=== PATIENT | male | born 1955 | race Caucasian/White ===

== ENCOUNTER 2021-04-18 15:37 | Emergency (ER) | payer OTHER, SELFPAY ==
[2021-04-18 15:49] VITALS: BP 160/110; PULSE 90; PULSE 99; RESP 16; TEMP 36.8; O2SAT 98; O2SAT 99; BMI 26.4
--- NOTE | 2021-04-18 15:55 | ED.GENADULT ---
HPI - General Adult General Chief complaint: Dental/Oral Stated complaint: L FACE PAIN/SWELLING? INFECTION Time Seen by Provider: 04/18/21 15:55 Source: patient Limitations: no limitations History of Present Illness HPI narrative: Patient presents to the ER with left-sided facial swelling and dental pain. Patient states ongoing over the last 2-3 days after eating some food that had bones at 1 8 bit down causing pain. [place] and has a history of hypertension but has not taken his antihypertensive medications in some time. Pain and 8/10. Positive swelling noted to left side of the face. Related Data Previous Rx's Medication Instructions Recorded amoxicillin 500 mg capsule 500 mg PO TID 10 Days #30 cap 04/18/21 naproxen 500 mg tablet 500 mg PO BID PRN #30 tab 04/18/21 Allergies Allergy/AdvReac Type Severity Reaction Status Date / Time oxycodone [OXYCODONE] Allergy Mild NAUSEA & Unverified 11/03/19 16:11 VOMITING acetaminophen [Percocet] Allergy Unknown Verified 08/27/12 00:00 Review of Systems Constitutional: Constitutional: Denies chills, Denies fever(s) and Denies headache(s) ENT: Denies headache(s) and Reports mouth pain Gastrointestinal: Gastrointestinal: Denies nausea and Denies vomiting Neurologic: Denies headache(s) [facility] Past Medical History Attestation statement: The following information was validated with the patient. Social History Social History Advance Directives: No Advance Directives Information Provided: No Physical Exam ED Vital Signs: Vital Signs - 24 hr 04/18/21 15:49 Temperature 98.3 F Pulse Rate 90 Respiratory Rate 16 Blood Pressure 160/110 H Pulse Oximetry 99 BMI result Body Mass Index 26.4 vital signs have been reviewed as normal and appeared to be correct. Blood pressure normal. Heart rate normal. Respiration rate normal. Temperature normal. Oxygen saturation normal. Appearance: Alert. Oriented X3. No acute distress. Head: Normal external exam. Normocephalic. Atraumatic. Eyes: PERRLA. EOMI. Conjunctiva and sclera normal. Eyelids normal. ENT: Pharynx normal. Uvula midline. Moist mucous membranes. No trismus noted. No drooling noted. No muffled voice noted. Dentition in poor repair. Positive swelling left lower gum line no obvious drainable abscess palpated. Neck: Soft full range of motion, no JVD CVS: Heart regular rate and rhythm no murmurs and rubs Respiratory: Breath sounds are clear to auscultation bilaterally. No accessory muscle use noted. Back: Full range of motion noted. Skin: Skin warm and dry. No rashes ecchymosis noted Extremities: No lower extremity edema. Extremities exhibit normal range of motion. Extremities nontender. Neuro: Oriented X 3. No motor deficit. No sensory deficit. Reflexes normal. Course Course Course Narrative: Left-sided dental caries Left-sided facial pain Left-sided fractured tooth Case discussed with patient at length about the need to follow-up with the dentist. Will consult care team to help patient with transportation home. 30 mg Toradol IM 500 mg amoxicillin p.o. Discharge Plan Discharge Clinical Impression: Dental caries Instructions: Dental Abscess (ED), Toothache (ED) Additional Instructions: Medication as directed Close follow-up with dentist as needed Return if symptoms worsen Prescriptions: New naproxen 500 mg tablet 500 mg PO BID PRN (Reason: pain) Qty: 30 0RF Rx Instructions: Start 04/19/2021 amoxicillin 500 mg capsule 500 mg PO TID 10 Days Qty: 30 0RF
[2021-04-18] MEDS: Amoxicillin 500 MG CAPSULE PO (16:30)
[2021-04-18] MEDS: Ketorolac Tromethamine 30 MG/ML VIAL IM (16:30)
== END 2021-04-18 16:46 | disposition home or self-care (01) ==
PROVIDERS: Emergency Provider Emergency Medicine
DX: K02.9 Dental caries, unspecified (principal); K08.89 Other specified disorders of teeth and supporting structures
CPT/HCPCS: 96372; 99283; 99284; J1885

== ENCOUNTER 2022-04-28 12:15 | Emergency (ER) | payer OTHER, SELFPAY ==
--- NOTE | ~2022-04-28 | XR_ITS ---
EXAMINATION: XR LUMBOSACRAL SPINE CLINICAL INFORMATION: Back pain. COMPARISON: None TECHNIQUE: Three views of the lumbosacral spine. FINDINGS: No acute compression deformity or traumatic subluxation. Moderate to severe intervertebral disc height loss at L3-L4, L4-L5 and L5-S1 with associated vacuum disc phenomena. Moderate hypertrophic facet changes at L4-L5 and L5-S1 leading to some degree of neural foraminal encroachment predominantly at L5-S1. SI joints are symmetric. Scattered atherosclerotic disease of the abdominal aorta. XR/XR lumbar spine 2-3V IMPRESSION: 1. No acute compression deformity or malalignment. 2. Moderate to severe lumbar spondylosis from L3 through S1. For evaluation of nerve root impingement, disc pathologies and degree of central canal narrowing, consider correlation with an MR of the lumbar spine if clinically deemed appropriate.
--- NOTE | ~2022-04-28 | XR_ITS ---
EXAMINATION: XR HIP, RIGHT CLINICAL INFORMATION: Right back/hip pain. COMPARISON: None TECHNIQUE: Two views of the right hip. FINDINGS: No acute fractures or malalignment. Mild to moderate joint space narrowing with subcortical sclerosis in both hips. SI joints are symmetric. Pubic symphysis is maintained. There are vascular calcifications. Otherwise, no significant soft tissue abnormality. XR/XR hip RT w PEL1V IMPRESSION: No acute fractures or malalignment. 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
--- NOTE | 2022-04-28 12:47 | ED.LOWEXIN ---
HPI - Extremity Injury (Lower) General Chief Complaint: General Medical <LANE Knowles - Last Filed: 04/28/22 12:51> Stated Complaint: r hip pain <LANE Knowles - Last Filed: 04/28/22 12:51> Time Seen by Provider: 04/28/22 14:02 <L[address] Knowles - Last Filed: 04/28/22 12:51> Source: patient <LANE Daniel - Last Filed: 04/28/22 16:46> Mode of arrival: ambulatory <LANE Daniel - Last Filed: 04/28/22 16:46> Limitations: no limitations <LANE Daniel Last Filed: 04/28/22 16:46> History of Present Illness HPI Narrative: Patient is a 67 year old assigned male at with a history of alcohol abuse, now 14 years sober, presenting to the emergency department today with right hip pain. Patient states that he was doing some heavy lifting and twisting 5 days ago and has been having right sided hip pain ever since. Patient denies any dizziness, lightheadedness, abdominal pain, nausea, vomiting, fever, chills, blurry vision, double vision, loss of vision, chest pain, difficulty breathing, shortness of breath, back pain, night sweats, pain with urination, increased urinary frequency, increased urinary urgency, blood in his urine or stool, syncope or a near syncopal episode, bowel incontinence, bladder incontinence, bowel retention, bladder retention, or any other complaints at this time. <LANE Daniel - Last Filed: 04/28/22 16:46> Onset (ago): day(s) (5) <LANE Daniel - Last Filed: 04/28/22 16:46> Severity: mild <LANE Daniel Last Filed: 04/28/22 16:46> Severity scale (1-10): 3 <L[address] Daniel Last Filed: 04/28/22 16:46> Relieving factors: nothing <LANE Daniel Last Filed: 04/28/22 16:46> Exacerbating factors: nothing <LANE Daniel Last Filed: 04/28/22 16:46> Other symptoms: none <LANE Daniel Last Filed: 04/28/22 16:46> Related Data Home Medications: Previous Rx's Medication Instructions Recorded amoxicillin 500 mg capsule 500 mg PO TID 10 days #30 caps 04/18/21 naproxen 500 mg tablet 500 mg PO BID PRN pain #30 tabs 04/18/21 lidocaine 4 % topical patch 1 patch topical DAILY PRN pain #10 04/28/22 ea naproxen 500 mg tablet 500 mg PO BID 7 days #14 tabs 04/28/22 <L[address] Knowles Last Filed: 04/28/22 12:51> Allergies/Adverse Reactions: Allergies Allergy/AdvReac Type Severity Reaction Status Date / Time oxycodone [OXYCODONE] Allergy Mild NAUSEA & Verified 04/28/22 12:48 VOMITING acetaminophen [Percocet] Allergy Unknown Nausea and Verified 04/28/22 12:48 Vomiting <LANE Knowles Last Filed: 04/28/22 12:51> Review of Systems Constitutional: Constitutional: Reports no additional constitutional complaints, Denies chills, Denies fever(s) and Denies night sweats <LANE Daniel Last Filed: 04/28/22 16:46> Eyes: Eyes: Reports no additional eye complaints, Denies blurry vision, Denies change in vision, Denies diplopia, Denies eye discharge, Denies loss of vision and Denies eye pain <LANE Daniel Last Filed: 04/28/22 16:46> ENT: Denies dizziness <LANE Daniel Last Filed: 04/28/22 16:46> Cardiovascular: Cardiovascular: Reports no additional cardiovascular complaints, Denies chest pain, Denies lightheadedness, Denies Loss of Consciousness and Denies dyspnea <LANE Daniel Last Filed: 04/28/22 16:46> Respiratory: Respiratory: Reports no additional respiratory complaints and Denies dyspnea <LANE Daniel Last Filed: 04/28/22 16:46> Gastrointestinal: Gastrointestinal: Reports no additional gastrointestinal complaints, Denies abdominal pain, Denies melena, Denies hematochezia, Denies change in bowel habits and Denies change in stool character <LANE Daniel Last Filed: 04/28/22 16:46> Genitourinary: Genitourinary: Reports no additional male genitourinary complaints, Denies hematuria, Denies oliguria, Denies difficulty urinating, Denies dysuria, Denies urinary frequency, Denies urinary hesitancy, Denies urinary incontinence and Denies urinary urgency <LANE Daniel - Last Filed: 04/28/22 16:46> Musculoskeletal: Musculoskeletal: Reports no additional musculoskeletal complaints, Denies numbness and Denies tingling <LANE Daniel - Last Filed: 04/28/22 16:46> Comments: right hip pain <LANE Daniel - Last Filed: 04/28/22 16:46> Neurologic: Denies dizziness, Denies loss of vision, Denies numbness and Denies tingling <LANE Daniel - Last Filed: 04/28/22 16:46> Psychiatric: Psychiatric: Reports no additional psychiatric complaints <LANE Daniel - Last Filed: 04/28/22 16:46> Endocrine: Endocrine: Reports no additional endocrine complaints <LANE Daniel - Last Filed: 04/28/22 16:46> Hematologic/Lymphatic: Hematologic/Lymphatic: Reports no additional hematologic/lymphatic complaints <LANE Daniel - Last Filed: 04/28/22 16:46> Allergic/Immunologic: Allergic/Immunologic: Reports no additional allergic/immunologic complaints <LANE Daniel - Last Filed: 04/28/22 16:46> PMFSH Past Medical History Attestation statement: The following information was validated with the patient. <LANE Daniel - Last Filed: 04/28/22 16:46> Source: old records reviewed and nursing notes reviewed <LANE Daniel - Last Filed: 04/28/22 16:46> Social History Social History: Social History Advance Directives: No Advance Directives Information Provided: No <LANE Knowles - Last Filed: 04/28/22 12:51> Physical Exam Vital Signs: Vital Signs: Last Vital Signs Temp 98.5 F 04/28/22 12:49 Pulse 65 04/28/22 12:49 Resp 18 04/28/22 12:49 BP 165/92 H 04/28/22 12:49 Pulse Ox 97 04/28/22 12:49 O2 Del Method 04/28/22 12:49 BMI result Body Mass Index 27.1 <L[address] Knowles - Last Filed: 04/28/22 12:51> Vital Signs: Last Vital Signs Temp 98.5 F 04/28/22 12:49 Pulse 65 04/28/22 12:49 Resp 18 04/28/22 12:49 BP 165/92 H 04/28/22 12:49 Pulse Ox 97 04/28/22 12:49 O2 Del Method 04/28/22 12:49 BMI result Body Mass Index 27.1 <L[address] Daniel - Last Filed: 04/28/22 16:46> Const: General: cooperative, no acute distress, alert and awake <LANE Daniel - Last Filed: 04/28/22 16:46> Nutritional Appearance: well nourished <LANE Daniel - Last Filed: 04/28/22 16:46> Orientation/consciousness: patient oriented x3 <LANE Daniel - Last Filed: 04/28/22 16:46> Limitations: no limitations <LANE Daniel - Last Filed: 04/28/22 16:46> HEENT: Head: Yes normal to inspection and Yes atraumatic <LANE Daniel - Last Filed: 04/28/22 16:46> Ears: hearing grossly normal bilaterally and external ears normal <LANE Daniel - Last Filed: 04/28/22 16:46> General nose exam: Normal external nose present, no nasal discharge noted and no epistaxis <LANE Daniel - Last Filed: 04/28/22 16:46> Face and sinus: Yes normal facial exam, No abrasion and No laceration <LANE Daniel - Last Filed: 04/28/22 16:46> Mouth: Normal oral and palatal mucosa present, no drooling and no muffled voice <LANE Daniel - Last Filed: 04/28/22 16:46> Eyes: General: appearance normal, both eyes and all related structures <LANE Daniel - Last Filed: 04/28/22 16:46> Periorbital: periorbital findings normal <Latha Christian [place] - Last Filed: 04/28/22 16:46> Eyelids: Yes eyelids normal <Latha Christian [place] - Last Filed: 04/28/22 16:46> Conjunctivae: conjunctivae normal <Latha Christian [place] - Last Filed: 04/28/22 16:46> Pupils: Equal, round and reactive pupils present <Latha Christian [place] - Last Filed: 04/28/22 16:46> EOM: EOMs intact bilaterally <Latha Christian [place] - Last Filed: 04/28/22 16:46> Neck: Neck: Yes normal visual inspection, Yes full ROM and Yes no lymphadenopathy <Latha Christian [place] - Last Filed: 04/28/22 16:46> Chest: Chest palpation & inspection: normal inspection of the chest <Latha Christian [place] - Last Filed: 04/28/22 16:46> Resp: Effort & Inspection: normal respiratory effort and able to speak in complete sentences <Latha Christian [place] - Last Filed: 04/28/22 16:46> Auscultation: clear to auscultation bilaterally <Latha Christian [place] - Last Filed: 04/28/22 16:46> Cardio: Rate: regular rate <Latha Christian [place] - Last Filed: 04/28/22 16:46> Rhythm: regular rhythm <Latha Christian [place] - Last Filed: 04/28/22 16:46> GI: Inspection: Yes normal to inspection <Latha Christian [place] - Last Filed: 04/28/22 16:46> Palpation (GI): Soft to palpation, not firm, nontender, no guarding and not rigid <Latha Christian [place] - Last Filed: 04/28/22 16:46> : General: Yes no CVA tenderness <Latha Christian [place] - Last Filed: 04/28/22 16:46> Back/Spine/Pelvis: Back: no CVA tenderness <Latha Christian [place] - Last Filed: 04/28/22 16:46> Cervical Spine: normal cervical lordosis and cervical ROM normal <Latha Christian MI - Last Filed: 04/28/22 16:46> Thoracic/Lumbar Spine: thoracic and lumbar spine normal to inspection and thoraco-lumbar ROM normal <Latha LANE Christian - Last Filed: 04/28/22 16:46> Pelvis: no pain with anterior-posterior compression <Lathaabigail AnneLANE emerson - Last Filed: 04/28/22 16:46> Neuro: General: patient oriented x3 and moves all extremities <LANE Daniel - Last Filed: 04/28/22 16:46> Cranial nerves: Yes Equal, round and reactive pupils present <Latha Christian PA - Last Filed: 04/28/22 16:46> Cognition (Neuro): normal cognition <LANE Daniel - Last Filed: 04/28/22 16:46> Motor exam (neuro): 5/5 motor strength present throughout <Latha Christian PA - Last Filed: 04/28/22 16:46> Sensory Exam: Normal double simultaneous stimulation for sensation <LANE Daniel - Last Filed: 04/28/22 16:46> Coordination: [id number] test normal <Latha Christian PA - Last Filed: 04/28/22 16:46> Extrem: General: Yes normal to inspection, Yes full ROM and Yes capillary refill normal <LANE Daniel - Last Filed: 04/28/22 16:46> Psych: Appearance: grossly normal <LANE Daniel - Last Filed: 04/28/22 16:46> Mental Status: mental status grossly normal <LANE Daniel - Last Filed: 04/28/22 16:46> Affect: normal affect <LANE Daniel - Last Filed: 04/28/22 16:46> Attitude: cooperative <LANE Daniel - Last Filed: 04/28/22 16:46> Thought process: Normal thought process present <LANE Daniel - Last Filed: 04/28/22 16:46> Thought content: Normal thought content present <LANE Daniel - Last Filed: 04/28/22 16:46> Insight: Good insight present (Psych) <LANE Daniel - Last Filed: 04/28/22 16:46> Course Course Course Narrative: RME-12:47PM - 67yoM with a PMHx of HTN who is presenting to the ED with c/o of right hip pain that started 2 days ago. Is a . 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 Work with walking. Reports the pain is going down the leg. Denies fevers, CP, SOB, Leg, swelling, calf tenderness, urinary bowel incontinence or retention, saddle anesthesia, recent falls or trauma, any urinary symptoms, abdominal pain or any other symptoms complaints or concerns at this time. Plan: X-ray of right hip and lumbar spine ordered at this time. Patient will be seen in [facility]. <LANE Knowles - Last Filed: 04/28/22 12:51> Medications Administered Discontinued Medications Generic Name Dose Route Start Last Admin Trade Name Freq PRN Reason Stop Dose Admin Ketorolac Tromethamine 15 mg 04/28/22 14:21 04/28/22 14:35 Ketorolac Tromethamine 15 Mg/Ml Vial IM 04/28/22 14:22 15 mg ONCE ONE Administration <LANE Knowles - Last Filed: 04/28/22 12:51> Medications Administered Discontinued Medications Generic Name Dose Route Start Last Admin Trade Name Freq PRN Reason Stop Dose Admin Ketorolac Tromethamine 15 mg 04/28/22 14:21 04/28/22 14:35 Ketorolac Tromethamine 15 Mg/Ml Vial IM 04/28/22 14:22 15 mg ONCE ONE Administration <LANE Daniel - Last Filed: 04/28/22 16:46> Medical Decision Making Medical Decision Making [facility] Narrative: Patient is a 67 year old assigned male at with a history of alcohol abuse, now 14 years sober, presenting to the emergency department today with right hip pain. Patient's physical exam was unremarkable. Patient's right hip x-ray showed no acute process. Patient's lumbar spine x-ray showed moderate to severe lumbar spondylosis. I explained my physical exam findings as well as all test results to the patient. I answered all questions asked by the patient. Patient received IM Toradol which he stated helped his pain significantly. I stressed the importance of the patient taking his medication as prescribed. I stressed the importance of the patient following up with his primary care provider. I stressed the importance of the patient returning to the emergency department immediately if his symptoms were to worsen or if he were to develop any dizziness, shortness of breath, difficulty breathing, chest pain, blurry vision, loss of vision, nausea, vomiting, abdominal pain, fever, chills, back pain, or any other complaints. Patient verbalized agreement and understanding with this treatment plan and discharge. <LANE Daniel - Last Filed: 04/28/22 16:46> Differential Diagnosis Differential Diagnoses: The differential diagnosis associated with the presentation includes <LANE Daniel - Last Filed: 04/28/22 16:46> hip pain, muscle strain <LANE Daniel - Last Filed: 04/28/22 16:46> Independent Interpretation I performed an independent interpretation of an: Plain X-Ray <LANE Daniel - Last Filed: 04/28/22 16:46> Interpretation: My interpretation is in agreement with the radiologist's impression of these imaging studies. EXAMINATION: XR LUMBOSACRAL SPINE CLINICAL INFORMATION: Back pain. COMPARISON: None TECHNIQUE: Three views of the lumbosacral spine. FINDINGS: No acute compression deformity or traumatic subluxation. Moderate to severe intervertebral disc height loss at L3-L4, L4-L5 and L5-S1 with associated vacuum disc phenomena. Moderate hypertrophic facet changes at L4-L5 and L5-S1 leading to some degree of neural foraminal encroachment predominantly at L5-S1. SI joints are symmetric. Scattered atherosclerotic disease of the abdominal aorta. XR/XR lumbar spine 2-3V IMPRESSION: 1.? No acute compression deformity or malalignment. 2.? Moderate to severe lumbar spondylosis from L3 through S1. For evaluation of nerve root impingement, disc pathologies and degree of central canal narrowing, consider correlation with an MR of the lumbar spine if clinically deemed appropriate. Dictated By: Leila Harper Signed By: Electronically signed by Leila Harper 04/28/22 1342 EXAMINATION: XR HIP, RIGHT CLINICAL INFORMATION: Right back/hip pain. COMPARISON: None TECHNIQUE: Two views of the right hip. FINDINGS: No acute fractures or malalignment. Mild to moderate joint space narrowing with subcortical sclerosis in both hips. SI joints are symmetric. Pubic symphysis is maintained. There are vascular calcifications. Otherwise, no significant soft tissue abnormality.? XR/XR hip RT w PEL1V IMPRESSION: No acute fractures or malalignment. 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 Dictated By: Leila Harper Signed By: Electronically signed by Leila Harper 04/28/22 [address] <[address] Daniel - Last Filed: 04/28/22 16:46> Discharge Plan Discharge Clinical Impression: Acute hip pain <LANE Knowles - Last Filed: 04/28/22 12:51> Patient Disposition: Home, Self-Care <LANE Knowles - Last Filed: 04/28/22 12:51> Instructions: Hip Pain (ED) <LANE Knowles - Last Filed: 04/28/22 12:51> Additional Instructions: Follow up with your primary care provider. Return to the emergency department immediately if your symptoms worsen or if you develop any dizziness, shortness of breath, difficulty breathing, chest pain, blurry vision, loss of vision, nausea, vomiting, abdominal pain, fever, chills, back pain, or any other complaints. <LANE Knowles - Last Filed: 04/28/22 12:51> Prescriptions: New naproxen 500 mg tablet 500 mg PO BID 7 Days Qty: 14 0RF lidocaine 4 % adhesive patch,medicated 1 patch topical DAILY PRN (Reason: pain) Qty: 10 0RF No Action naproxen 500 mg tablet 500 mg PO BID PRN (Reason: pain) Qty: 30 0RF Rx Instructions: Start 04/19/2021 amoxicillin 500 mg capsule 500 mg PO TID 10 Days Qty: 30 0RF <L[address] Knowles - Last Filed: 04/28/22 12:51> Referrals: [facility] [Provider Group] (Call to establish and follow up with an orthopedic provider. ) Osmar Healy [Primary Care Provider] - <LANE Knowles - Last Filed: 04/28/22 12:51> Stand Alone Forms: Work/School Release <LANE Knowles - Last Filed: 04/28/22 12:51> Interventions: ED Discharge Assessment Last Done: 04/28/22 14:37 <L[address] Knowles - Last Filed: 04/28/22 12:51> Discharge Date/Time: 04/28/22 14:38 <LANE Knowles - Last Filed: 04/28/22 12:51> Print Language: Urdu <LANE Knowles - Last Filed: 04/28/22 12:51>
[2022-04-28 12:49] VITALS: BP 165/92; PULSE 65; RESP 18; TEMP 36.9; O2SAT 97; BMI 27.1
[2022-04-28] MEDS: Ketorolac Tromethamine 15 MG/ML VIAL IM (14:35)
== END 2022-04-28 14:38 | disposition home or self-care (01) ==
LOC: HO.ED 14:31
PROVIDERS: Emergency Provider Student in an Organized Health Care Education/Training Program; PCP Internal Medicine
DX: M25.551 Pain in right hip (principal); M54.50 Low back pain, unspecified; Z79.899 Other long term (current) drug therapy
CPT/HCPCS: 72100; 73502; 96372; 99283; 99284; J1885

== ENCOUNTER 2024-03-14 09:16 | Outpatient (AMB) | payer OTHER, SELFPAY ==
--- NOTE | 2024-03-14 09:23 | MHC.OFFVIS ---
Intake Visit Reasons: elevated PSA Intake Note: New patient is Present for Elevated PSA Any Urology Med: None Antibiotic Allergy: None Blood Thinner: Aspirin PVR: 0ml Doctor Of [facility] Required: No Accompanied by: Self / Same As Patient Allergies cyclobenzaprine Allergy (Mild, Verified 03/14/24 09:24) Unknown naproxen [From Naprosyn] Allergy (Mild, Verified 03/14/24 09:24) Unknown oxycodone [OXYCODONE] Allergy (Mild, Verified 03/14/24 09:24) NAUSEA & VOMITING acetaminophen [Percocet] Allergy (Unknown, Verified 03/14/24 09:24) Nausea and Vomiting lisinipril Allergy (Mild, Uncoded 03/14/24 09:24) Unknown Medication List - Last Reconciled 03/14/24 by Keisha Muhammad MD amlodipine 10 mg PO DAILY aspirin (Adult Aspirin Regimen) 81 mg PO DAILY HPI Comments Details: Allan is a 69-year-old male who [facility]. He denies obstructive voiding symptoms. AUA BPH score is 2/35. Urinalysis today is negative. He had PSA done 4.99. Denies family history of prostate cancer. Prostate examination smooth no suspicious nodules. I have discussed that elevated PSA may indicate changes in the prostate including benign enlargement, cancer and an inflammatory condition. I have discussed repeat PSA and ultrasound of urinary tract. [facility] Medical History (Updated 03/14/24 @ 10:22 by Keisha Muhammad MD) Other testicular hypofunction Solitary pulmonary nodule Pain in right hip Monoclonal gammopathy Gastric ulcer, unspecified as acute or chronic, without hemorrhage or perforation Essential (primary) hypertension Contact with and (suspected) exposure to other hazardous substances Anemia, unspecified Cocaine dependence, uncomplicated Cannabis dependence, in remission Alcohol dependence, in remission Elevated PSA Review of Systems Const All systems reviewed & are unremarkable except as noted in HPI and below Reports no additional complaints Eyes Reports no additional complaints ENT Reports no additional complaints Card Reports no additional complaints Resp Reports no additional complaints GI Reports no additional complaints Reports as per HPI Musc Reports no additional complaints Skin/Breast Reports system reviewed and no additional complaints, except as documented Neuro Reports no additional complaints Psych Reports no additional complaints Endo Reports no additional complaints Roberto/Lymph Reports no additional complaints Aller/Immun Reports no additional complaints Physical Exam Const General: healthy appearing, no acute distress and well developed Orientation/consciousness: patient oriented x3 HEENT Head: Yes normocephalic and Yes atraumatic Eyes Conjunctivae: conjunctivae normal Neck Neck: Yes normal visual inspection Chest Chest palpation & inspection: normal inspection of the chest Resp Effort & Inspection: normal respiratory effort Cardio Jugular venous distension: no JVD GI Inspection: Yes normal to inspection Other: Prostate Exam: Smooth no suspicious nodules Skin General skin exam: no rashes or lesions noted Neuro General: patient oriented x3 Extrem General: No pedal edema Psych Appearance: grossly normal Affect: normal affect Office Procedures Post Void Residual Post Residual Void Post Void Residual (PVR): 0 [id number] Void Residual by ultrasound Results AMB Urinalysis, Automated UA Leukoctes 0 Teja/uL Last Edit by MARZENA Mas on 03/14/24 09:35 UA Nitrite Negative Last Edit by Suzanne Hinton [facility] on 03/14/24 09:35 UA Urobilinogen 0.2 mg/dL Last Edit by MARZENA Mas on 03/14/24 09:35 UA Protein 15 mg/dL Last Edit by Suzanne Hinton [facility] on 03/14/24 09:35 UA pH 6.0 Last Edit by MARZENA Mas on 03/14/24 09:35 UA Blood 0 Prasanna/uL Last Edit by Suzanne Hinton [facility] on 03/14/24 09:35 UA Specific [place] 1.015 Last Edit by MARZENA Mas on 03/14/24 09:35 UA Ketone Negative Last Edit by Suzanne Hinton Jelani on 03/14/24 09:35 UA Bilirubin 0 mg/dL Last Edit by Suzanne Hinton [facility] on 03/14/24 09:35 UA Glucose 0 mg/dL Last Edit by Suzanne Hinton [facility] on 03/14/24 09:35 Quality Reporting (2019) Benign Prostatic Hyperplasia ([facility] 771) AUA symptom score: 2 Quality of life due to urinary symptoms: If you were to spend the rest of your life with your urinary condition the way it is now, how would you feel about that?: Delighted Results Reviewed Results Reviewed: Laboratory Last Values Urine pH (Auto) 6.0 03/14/24 09:32 Specific [place] (Auto) 1.015 03/14/24 09:32 Urine Protein (Auto) 15 mg/dL 03/14/24 09:32 Glucose (UA)(Auto) 0 mg/dL 03/14/24 09:32 Urine Ketones (Auto) Negative 03/14/24 09:32 Urine Blood (Auto) 0 Prasanna/uL 03/14/24 09:32 Urine Nitrite (Auto) Negative 03/14/24 09:32 Urine Bilirubin (Auto) 0 mg/dL 03/14/24 09:32 Urine Urobilinogen (Auto) 0.2 mg/dL 03/14/24 09:32 Leukocyte Esterase (Auto) 0 Teja/uL 03/14/24 09:32 Assessment & Plan Assessment & Plan (1) BPH (benign prostatic hyperplasia): Code(s): N40.0 - Benign prostatic hyperplasia without lower urinary tract symptoms Category: Medical (2) Elevated PSA: Code(s): R97.20 - Elevated prostate specific antigen [PSA] Category: Medical Plan Ultrasound urinary tract. Repeat PSA Orders: Orders US retroperitoneal comp Today N40.0 - Benign prostatic hyperplasia without lower urinary tract symptoms, R97.20 - Elevated prostate specific antigen [PSA] PSA,Total (Free>4and<10) Today N40.0 - Benign prostatic hyperplasia without lower urinary tract symptoms, R97.20 - Elevated prostate specific antigen [PSA] AMB Urinalysis Automated Today Z13.9 - Encounter for screening, unspecified AMB Post Void Residual by ultrasound Today Z13.9 - Encounter for screening, unspecified Patient Instructions: The patient had an opportunity to ask questions regarding treatment plan. The patient expressed understanding and agreement with the above treatment plan. The patient is aware they should contact our office by phone for worsening of their current condition or the appearance of new symptoms. Compliance is encouraged with any medications and followup testing that is ordered. It is a privilege to be allowed the opportunity to participate in the urologic care of your patient. If you have any questions or concerns regarding treatment for the above conditions please do not hesitate to contact me. The office telephone contact is [phone]. This note is constructed in part using voice recognition software. While every effort has been made to ensure accuracy retort loader errors may have been included. Yours sincerely, Keisha Muhammad MD Coding Level of Care Code New Pt Level 4 (32839) Diagnoses BPH (benign prostatic hyperplasia) N40.0 Elevated PSA R97.20 CPT Codes Post Residual Void - PVR CPT Code: 94687-Ikma Void Residual by ultrasound ([id number]) AUA Symptom Score AUA Incomplete emptying - It does not feel like I empty my bladder all the way.: 0 - Not at all Frequency - I have to go again less than two hours after I finish urinating.: 1 - Less than 1 time in 5 Intermittency - I stop and start again several times when I urinate.: 0 - Not at all Urgency - It is hard to wait when I have to urinate.: 0 - Not at all Weak stream - I have a weak urinary stream.: 0 - Not at all Straining - I have to push or strain to begin urination.: 0 - Not at all Nocturia - I get up to urinate after I go to bed until the time I get up in the morning.: 1 time AUA Symptom Score: 2 Quality of life due to urinary symptoms: If you were to spend the rest of your life with your urinary condition the way it is now, how would you feel about that?: Delighted Source: Josesito TROTTER, Sonja SALDAÑA Jr, O'Ascencion MP, et al, and the Measurement Committee of the [employer]. The [employer] symptom index for benign prostatic hyperplasia. J Urol. 1992; 148: 1871-2849. Copyright 1992 [employer]
--- OUTSIDE RECORDS SUMMARY | 2024-03-14 13:38 | XMS_ITS | Data Portability ---
Author Organization [facility], [facility] Address [address] [place] [address] Care Team Providers Care Basketball Assembler Name Role Phone SHANE BRADSHAW Referring Provider Assessment Encounter Date Assessment Date Assessment LastModified by Organization Details LastModified Time 12/16/2023 12/16/2023 Assessment: Improved mobility/stiffne ss since beginning stretches at home. STM to proximal ITB/TFL to distal ITB. improvement in symptoms by end of session. ? Plan: Continued PT is recommended at 2x/week to decrease pain, improve hip strength, and increase participation in functional activities. [email or web address] Not available 12/16/2023 09:25:28 12/21/2023 12/21/2023 Assessment: Swelling not as prominent today. better tolerance to all stretching. Quick to fatigue on R side. ? Plan: Continued PT is recommended at 2x/week to decrease pain, improve hip strength, and increase participation in functional activities. [email or web address] Not available 12/21/2023 08:57:11 12/23/2023 12/23/2023 Assessment: Swelling not as prominent today. better tolerance to all stretching. Quick to fatigue on R side. ? Plan: Continued PT is recommended at 2x/week to decrease pain, improve hip strength, and increase participation in functional activities. [email or web address] Not available 12/23/2023 13:05:30 12/28/2023 12/28/2023 Assessment: Increased swelling compared to LV. Tight distal ITB ? Plan: Continued PT is recommended at 2x/week to decrease pain, improve hip strength, and increase participation in functional activities. [email or web address] Not available 12/28/2023 13:23:56 12/30/2023 12/30/2023 Assessment: Increased swelling compared to LV. Tight distal ITB ? Plan: D/C to HEP, f/u w/ [facility]/ as needed. [email or web address] Not available 12/30/2023 09:08:48 Plan of Treatment Reminders Order Date Submit Date Provider Last Modified By Organization Details Last Modified Time Details Appointments None record ed. Lab None record ed. Referral None record ed. Procedures None record ed. Surgeries None record ed. Imaging None record ed. Medication Orders None record ed. Patient TargetsNo targets recorded. Patient InstructionsNo instructions recorded. Reason for Referral None Reported. Problems Name Problem SNOMED Code Status Onset Date Resolution Date Notes Provider Name and Address Organization Details Recorded Time Osteoarthri tis of right knee joint 8119170483495 00 Active 2023 melo burciaga [facility] 4 12:12:10 Osteoarthri tis of right hip joint 8281083280681 07 Active 2023 DENZEL burciaga [facility] 4 14:00:28 Problem Notes None recorded. Procedures Surgical History Date Name Laterality Status Provider Name and Address Organization Details Recorded Time 4 44639 Therapeutic Exercise (1:1) completed Jonah Toledo DPT [address] [place] [address], [address], [facility] 12/30/2023 09:08:12 4 07240: Manual therapy completed Jonah Toledo DPT [address] [facility], [place], [address], [facility] 12/30/2023 09:08:12 4 07414 Therapeutic Exercise (1:1) completed Jonah Toledo DPT [address] [facility], [place], [address], [facility] 12/28/2023 13:23:16 4 58173: Manual therapy completed Jonah Toledo DPT [address] [facility], [place], [address], [facility] 12/28/2023 13:23:16 4 22844 Therapeutic Exercise (1:1) completed CEILO DelunaT [address], [place], [address], [facility] 12/23/2023 13:05:30 4 77373: Manual therapy completed CELIO DelunaT [address], [place], [address], [facility] 12/23/2023 13:05:30 4 87563 Therapeutic Exercise (1:1) completed CELIO DelunaT [address], [place], [address], [facility] 12/21/2023 08:51:50 23061: Manual therapy completed CELIO DelunaT [address], [place], [address], [facility] 12/21/2023 08:51:50 4 18605 Therapeutic Exercise (1:1) completed CELIO DelunaT [address], [place], [address], [facility] 12/16/2023 09:22:30 4 42802: Manual therapy completed Jonah Toledo DPT [address], [place], [address], [facility] 12/16/2023 09:22:38 4 10100 Therapeutic Exercise (1:1) completed CELIO DelunaT [address], [place], [address], [facility] 12/09/2023 16:07:55 28324: Low complexity PT Eval completed Jonah Toledo DPT [address], [place], [address], [facility] 12/09/2023 16:07:57 4 69059 Therapeutic Exercise (1:1) completed CELIO DelunaT [address], [place], [address], [facility] 06/16/2023 14:44:36 4 55012 Therapeutic Exercise (1:1) completed CELIO DelunaT [address], [place], [address], [facility] 06/09/2023 14:33:14 4 99943 Therapeutic Exercise (1:1) completed CELIO DelunaT [address], [place], [address], [facility] 05/28/2023 14:36:52 4 23212 Therapeutic Exercise (1:1) completed Kavya Fernandez PTA [address], [place], [address], [facility] 05/25/2023 20:13:55 4 37884 Therapeutic Exercise (1:1) completed Kavya Fernandez PTA [address], [place], [address], [facility] 05/21/2023 14:09:46 4 25885 Therapeutic Exercise (1:1) completed Jonah Toledo DPT [address], [place], [address], [facility] 05/20/2023 07:04:15 4 65096 Therapeutic Exercise (1:1) completed CELIO DelunaT [address], [place], [address], [facility] 05/13/2023 13:45:18 4 44780 Therapeutic Exercise (1:1) completed CELIO DelunaT [address], [place], [address], [facility] 05/11/2023 15:01:01 4 03488 Therapeutic Exercise (1:1) completed Kavya Fernandez PTA [address], [place], [address], [facility] 05/03/2023 12:18:21 4 85283 Therapeutic Exercise (1:1) completed CELIO DelunaT [address], [place], [address], [facility] 04/30/2023 17:57:24 4 40853 Therapeutic Exercise (1:1) completed Jonah Toledo DPT [address], [place], [address], [facility] 04/28/2023 21:18:48 Imaging Results None recorded. Procedure Notes None recorded. Medical Equipment None Reported. Allergies Allergen ID Allergen Name Allergen Category Reaction Reaction Severity Criticality Documentation Date Start Date Code Code System Note Provider Name and Address Organization Details Recorded Time 801578 lisinopri l medicatio n Not available Not available Not available 04/20/20232022 58164 RxNorm Not Available [facility] 16:01:38 Medications Name Sig Start Date Stop Date Status Note LastModified by Organization Details LastModified Time cyclobenzapr ine 10 mg tablet TAKE 1 TABLET BY MOUTH AT BEDTIME NEEDED FOR MUSCLE SPASM FOR 3 DAYS active Not Available Not Available No t Available amoxicillin 500 mg capsule TAKE 4 CAPSULES BY MOUTH 1 HOUR PRIOR TO DENTAL PROCEDURE active Not Available Not Available No t Available meloxicam 15 mg tablet TAKE 1 TABLET EVERY DAY BY ORAL ROUTE AFTER MEAL(S). 2023 active Not Available Not Available Not Avai lable tramadol 50 mg tablet TAKE 1 TAB UP TO 3 TIMES A DAY NEEDED FOR SEVERE PAIN DO NOT DRIVE WHILE TAKING THIS MEDICATION active Not Available Not Available N ot Available diazepam 2 mg tablet TAKE 1 TABLET BY MOUTH EVERY 8 HORUS NEEDED FOR SPAMS DO NOT DRIVE WHILE TAKING THIS MEDICATION active Not Available Not Available N ot Available omeprazole 20 mg capsule,timur yed release TAKE 1 CAPSULE BY MOUTH TWICE A DAY active Not Available Not Available No t Available methylpredni solone 4 mg tablets in a dose pack TAKE 1 UNIT BY MOUTH DIRECTED UNTIL FINISHED active Not Available Not Available No t Available hydromorphon e 4 mg tablet TAKE 1/2 (HALF) TO 1 TABLET BY MOUTH EVERY 4 HOURS NEEDED FOR SEVERE PAIN active Not Available Not Available Not Available chlorhexidin e gluconate 0.12 % mouthwash active Not Available Not Available No t Available Eliquis 2.5 mg tablet TAKE 1 TABLET BY MOUTH TWO TIMES A DAY active Not Available Not Available Not Available Vitals None Recorded Social History None recorded. Functional Status None recorded. Mental Status None recorded. Family History Nothing Reported. Medical History No medical history recorded. Past Encounters Encounter ID Performer Location Encounter Start Date Encounter Closed Date Diagnosis/Indication Diagnosis SNOMED-CT Code Diagnosis ICD10 Code Diagnosis Note [id number] Jonah Toledo DPT [facility] [address] [place] [address] 04/28/2023 13:06:14 04/29/2023 13:08:56 Aftercare 227945662 Z47.1 History of right hip replacement 0412250949 979023 Z96.621 [id number] [facility] [address] [place] [address] 04/30/2023 13:28:48 04/30/2023 15:29:54 Aftercare 166483565 Z47.1 History of right hip replacement 9225719598 298751 Z96.040 [id number] Duran Akers, PT [facility] [address] [place] [address] 05/04/2023 12:31:56 05/04/2023 13:22:07 Aftercare 147400498 Z47.1 History of right hip replacement 4537377612 244454 Z96.842 [id number] Jonah Toledo DPT [facility] [address] [place] [address] 05/11/2023 13:31:19 05/11/2023 15:12:08 Aftercare 432727288 Z47.1 History of right hip replacement 7339412147 448509 Z96.370 [id number] MD Sheridan Esquivel 2nd floor [address] [place] [address] 05/12/2023 13:11:30 05/26/2023 14:27:21 History of total replacement of right hip joint 0199733011 50892 Z96.397 [id number] Jonah Toledo , DPT [facility] [address] [place] [address] 05/13/2023 13:33:30 05/13/2023 14:52:29 Aftercare 031453385 Z47.1 History of right hip replacement 5942949737 145896 Z96.595 [id number] Jonah Toledo , DPT [facility] [address] [place] [address] 05/19/2023 13:43:36 05/19/2023 15:14:51 Aftercare 708495963 Z47.1 History of right hip replacement 7350336292 979107 Z96.597 [id number] CELIO DelunaT [facility] [address] [place] [address] 05/21/2023 12:59:10 05/21/2023 13:37:35 Aftercare 409669736 Z47.1 History of right hip replacement 6501510626 074139 Z96.007 [id number] Jonah Toledo , DPT [facility] [address] [place] [address] 05/26/2023 13:01:34 05/26/2023 13:35:33 Aftercare 416840607 Z47.1 History of right hip replacement 5705740598 417982 Z96.524 [id number] Jonah Toledo , DPT [facility] [address] [place] [address] 05/28/2023 12:01:36 05/28/2023 16:33:32 Aftercare 886831514 Z47.1 History of right hip replacement 3924006686 849981 Z96.973 [id number] Jonah Toledo DPT [facility] [address] [place] [address] 06/09/2023 12:39:00 06/09/2023 13:19:11 Aftercare 631611871 Z47.1 History of right hip replacement 0146999420 065870 Z96.880 [id number] Jonah Toledo DPT [facility] [address] [place] [address] 06/16/2023 13:04:58 06/16/2023 13:35:53 Aftercare 071166714 Z47.1 History of right hip replacement 2429565113 139052 Z96.672 [id number] MD Sheridan Esquivel 2nd floor [address] [place] [address] 09/29/2023 08:21:08 10/22/2023 09:52:15 History of total replacement of right hip joint 1515072189 34911 Z96.641 Osteoarthr itis of right hip joint 9296583553 40095 M16.11 Trochanter ic bursitis of right hip 2219986346 35898 M70.61 [id number] Jonah Toledo DPT [facility] [address] [place] [address] 12/09/2023 08:05:06 12/09/2023 10:13:07 Trochanteric bursitis of right hip 9277288770 84576 M70.61 [id number] Jonah Toledo DPT [facility] [address] [place] [address] 12/16/2023 08:05:13 12/16/2023 09:22:55 Trochanteric bursitis of right hip 8939358754 63963 M70.61 [id number] Jonah Toledo DPT [facility] [address] [place] [address] 12/21/2023 08:15:10 12/21/2023 10:05:35 Trochanteric bursitis of right hip 2525094038 83784 M70.61 [id number] Jonah Toledo DPT [facility] [address] [place] [address] 12/23/2023 08:01:40 12/23/2023 08:31:36 Trochanteric bursitis of right hip 7713549053 21632 M70.61 [id number] Jonah Toledo DPT [facility] [address] [place] [address] 12/28/2023 07:35:06 12/28/2023 09:00:00 Trochanteric bursitis of right hip 6340119288 85209 M70.61 [id number] Jonah Toledo DPT [facility] [address] [place] [address] 12/30/2023 08:06:51 12/30/2023 08:35:54 Trochanteric bursitis of right hip 8885286687 63120 M70.61 Health Concerns Section Related Observation LastModified by Organization Detai ls LastModified Time None Recorded Concern Status LastModified by Organization Details LastModified Time None Recorded Advance Directives Directive None Recorded Payers Encounter Date Sequence Insurance Name Policy Number Policy Billingsley Covered Member ID Billingsley Member ID Guarantor Name 12/16/2023 [facility] Allan E Cody [id number] Allan E Cody 12/21/2023 [facility] Allan E Cody [id number] Allan E Cody 12/23/2023 [facility] Allan E Cody [id number] Allan E Cody 12/28/2023 [facility] Allan E Cody [id number] Allan E Cody 12/30/2023 [facility] Allan E Cody [id number] Allan E Cody Notes Date Note Type Note Provider Name and Address Organization Details Recorded Time 12/16/2023 text/html Pt reports stretches have helped but continues to be working around the house. Jonah Toledo DPT [address], [place], [address], [facility] 12/16/2023 09:25:42 12/21/2023 text/html Pt reports has had to clean gutters over the weekend. Sore coming in today but overall feeling better Jonah Toledo DPT [address], [place], [address], [facility] 12/21/2023 08:57:22 12/23/2023 text/html Pt reports has had to clean gutters over the weekend. Sore coming in today but overall feeling better Jonah Toledo DPT [address], [place], [address], [facility] 12/23/2023 13:06:11 12/28/2023 text/html Pt reports moving around a lot over the weekend, feeling sore. Jonah Toledo DPT [address], [place], [address], [facility] 12/28/2023 13:24:05 12/30/2023 text/html Pt reports moving around a lot over the weekend, feeling sore. Jonah Toledo DPT [address], [place], [address], [facility] 12/30/2023 09:10:16
--- OUTSIDE RECORDS SUMMARY | 2024-03-14 13:38 | XMS_ITS | Encounter Summary ---
Author Organization [employer] Address [address] [place] [address] [address] [place] [address] Care Team Providers Care Sailor Name Role Phone Unavailable Primary Care Provider Unavailabl e Encounter Details Date Type Department Care Team (Late st Contact Info) Description 04/23/2023 Telephone [facility] [address] [place] [address] Paulo Arcso DMD [address] [place] [address] Social History Tobacco Use Types Packs/Day Years Used Date Smoking Tobacco: Former Cigarettes Smokeless Tobacco: Never Alcohol Use Standard Drinks/Week Comments Never 0 (1 standard drink = 0.6 oz pur e alcohol) Sex and Gender Information Value Date Recorded Sex Assigned at Male 12/16/2021 10:27 AM EDT Legal Sex Male 10:27 AM EDT Gender Identity Male 12/16/2021 10:27 AM EDT Sexual Orientation Straight 12/16/2021 10 :27 AM EDT documented as of this encounter Miscellaneous Notes * Telephone Encounter - Joseline Tomlin - 04/23/2023 12:08 PM EST Pre medication for extractions he does have can send it to pharmacy documented in this encounter Plan of Treatment Upcoming Encounters Date Type Department Care Team (Late Contact Info) Description 05/26/2024 10:00 AM EDT Office Visit [facility] [address] [place] [address] Clari Montez documented as of this encounter Visit Diagnoses Not on filedocumented in this encounter
--- OUTSIDE RECORDS SUMMARY | 2024-03-14 13:38 | XMS_ITS | Clinical Summary ---
Author Organization [employer] Address [address] [place] [address] 7 [place] [address] Care Team Providers Care Derrick Engineer Name Role Phone Unavailable Primary Care Provider Unavailabl e Allergies Active Allergy Reactions Criticality Noted Date Comments Acetaminophen 05/15/2014 Codeine 05/15/2014 Lisinopril Cough 01/15/2023 Oxycodone 05/15/2014 Medications aspirin 500 MG tablet Take by mouth. Activ e ibuprofen 600 MG tablet Take 1 tablet by mouth every 8 (eight) hours. 2 Active Multiple Vitamins-Mineral s (Multivitamin) liquid Active testosterone (AndroGel) 25 MG/2.5GM (1%) gel apply 2 packet by topical route every day Active amLODIPine-atorv astatin (Caduet) 10-10 MG tablet Take 1 tablet by mouth in the morning. Active amoxicillin (Amoxil) 500 MG capsuleIndicatio ns:History of hip replacement, unspecified laterality Take 4 pills (2g) by mouth 1 hour prior to dental procedure 4 capsule 4 Active Additional Information Patient not taking.Reported on 05/21/2023 chlorhexidine (Peridex) 0.12 % solutionIndicati ons:History of tooth extraction, unspecified edentulism class Swish 15 mL morning and night for 1 minute. Spit, do not swallow. Do not eat or drink for 30 minutes following use. 473 mL 4 Active Additional Information Patient not taking.Reported on 05/21/2023 amoxicillin (Amoxil) 500 MG capsule Take 4 tabs (2 grams) 1 hour prior to dental procedure 4 capsule 3 4 Active meloxicam (Mobic) 15 MG tablet TAKE 1 TABLET EVERY DAY BY ORAL ROUTE AFTER MEAL(S). Active omeprazole (PriLOSEC) [address] capsule Take 20 mg by mouth 2 times daily. 4 Active Active Problems Problem Noted Date Diagnosed Date Class 1 obesity 09/21/2023 Gout 09/21/2023 History of DVT of lower extremity 09/21/2023 Hypertension 09/21/2023 Primary osteoarthritis of right hip 09/21/2023 History of hip replacement 04/22/2023 Dental caries 02/19/2023 Dental abscess 02/19/2023 Social History Tobacco Use Types Packs/Day Years Used Date Smoking Tobacco: Former Cigarettes Smokeless Tobacco: Never Tobacco Cessation:Counseling Given: Not Answered Alcohol Use Standard Drinks/Week Comments Never 0 (1 standard drink = 0.6 oz pur e alcohol) Sex and Gender Information Value Date Recorded Sex Assigned at Male 12/16/2021 10:27 AM EDT Legal Sex Male 10:27 AM EDT Gender Identity Male 12/16/2021 10:27 AM EDT Sexual Orientation Straight 12/16/2021 10 :27 AM EDT Last Filed Vital Signs Vital Sign Reading Time Taken Comments Blood Pressure 104/62 11/26/2023 10:01 AM EDT Pulse 65 11/26/2023 10:01 AM EDT Temperature - - Respiratory Rate - - Oxygen Saturation - - Inhaled Oxygen Concentration - - Weight - - Height - - Body Mass Index - - Plan of Treatment Upcoming Encounters Date Type Department Care Team (Late st Contact Info) Description 05/26/2024 10:00 AM EDT Office Visit [facility] ADULT [facility] [address] [place] [address] Clari Montez Health Maintenance Due Date Last Done Comments CT Colonography 1954 Colonoscopy 1954 Colorectal Cancer Screening 1954 Depression Screening 1954 FIT DNA/Cologuard 1954 FIT 1954 FOBT 1954 Lipid Panel 1954 SDOH Screening 1954 Sigmoidoscopy 1954 Alcohol/Substance Use Screening 1966 Hepatitis C Screening 1972 Zoster Vaccines (1 of 2) 2004 DTaP/Tdap/Td Vaccines (1 - Tdap) 05/13/2016 05/12/2016, 10/18/2003 COVID-19 Vaccine (6 - season) 2023 07/15/2023, 11/28/2022, 12/25/2021, Additional history exists Influenza Vaccine (#1) 2023 , 02/27/2021, 11/29/2019, Additional history exists Dental X-Ray: Bitewings 04/22/2024 04/22/19 24, 01/07/2022, 07/24/2017, Additional history exists Dental Oral Exam 05/27/2024 11/26/2023, , 01/07/2022, Additional history exists Dental Prophylaxis 05/27/2024 11/26/2023, 0 02/17/2023, 05/16/2016, Additional history exists Tobacco Screening 11/25/2024 11/26/2023 Dental X-Ray: Full Mouth 01/08/2025 01/07/2022, 04/18 RSV Patients and Patients Aged 60 years or older (1 - 1-dose 75+ series) 2029 Pneumococcal Vaccine: 65+ Years Completed 12/25/2021, 12/15/2019, 10/21/2013 HIB Vaccines Aged Out No longer eligi ble based on patient's age to complete this topic HPV Vaccines Aged Out No longer eligi ble based on patient's age to complete this topic Hepatitis A Vaccines Aged Out No long er eligible based on patient's age to complete this topic Hepatitis B Vaccines Aged Out No long er eligible based on patient's age to complete this topic IPV Vaccines Aged Out No longer eligi ble based on patient's age to complete this topic Meningococcal Vaccine Aged Out No alexandr ady eligible based on patient's age to complete this topic RSV under 20 months Aged Out No longe r eligible based on patient's age to complete this topic Rotavirus Vaccines Aged Out No longer eligible based on patient's age to complete this topic Procedures Procedure Name Priority Date/Time Associated Diagnosis Comments PROPHYLAXIS - ADULT Routine 11/26/2023 1 0:00 AM EDT PERIODIC ORAL EVALUATION - ESTABLISHED PATIENT Routine 11/26/2023 10:00 AM EDT BITEWING - SINGLE RADIOGRAPHIC IMAGE Routine 04/22/2023 3:30 PM EST Necrosis of dental pulp DIAGNOSTIC - DIAGNOSTIC IMAGING - INTRAORAL - COMPREHENSIVE SERIES OF RADIOGRAPHIC IMAGES Routine 01/07/2022 12:00 AM EST from Last 3 Months or Most Recently Relevant to Health Maintenance Insurance DENTAL - HSN FULL (MEDICAID)
--- OUTSIDE RECORDS SUMMARY | 2024-03-14 13:38 | XMS_ITS | Encounter Summary ---
Author Organization [employer] Address [address] [place] [address] 7 [place] [address] Care Team Providers Care Airport Operations Coordinator Name Role Phone Unavailable Primary Care Provider Unavailabl e Encounter Details Date Type Department Care Team (Late st Contact Info) Description 05/15/2023 Telephone [facility] [address] [place] [address] Paulo Arcos, DMD [address] [place], [place] [id number] Social History Tobacco Use Types Packs/Day Years [...] * Telephone Encounter - Joseline Tomlin - 05/15/2023 3:13 PM EDT Patient would like some antibiotic send to his pharmacy just in case u decided to pull the tooth 05/21/2023 documented in this encounter Plan of Treatment Upcoming Encounters Date Type Department Care Team (Late st Contact Info) Description 05/26/2024 10:00 AM EDT Office Visit [facility] [address] [place] [address] Clari Montez documented as of this encounter Visit Diagnoses Not on filedocumented in this encounter
--- OUTSIDE RECORDS SUMMARY | 2024-03-14 13:38 | XMS_ITS | Encounter Summary ---
Author Organization [employer] Address [address] [place] [address] 7 [place] [address] Care Team Providers Care Rubber Extrusion Machine Operator Name Role Phone Unavailable Primary Care Provider Unavailabl e Encounter Details Date Type Department Care Team (Late st Contact Info) Description 01/13/2022 Abstract [facility] [address] [place] [address] Dental, Provider, DDS Social History Tobacco Use Types Packs/Day Years Used Date Smoking Tobacco: Never Assessed Sex and Gender Information Value Date Recorded Sex Assigned at Male 12/16/2021 10:27 AM EDT Legal Sex Male 10:27 AM EDT Gender Identity Male 12/16/2021 10:27 AM EDT Sexual Orientation Straight 12/16/2021 10 :27 AM EDT documented as of this encounter Plan of Treatment Upcoming Encounters Date Type Department Care Team (Late st Contact Info) Description 05/26/2024 10:00 AM EDT Office Visit [facility] [address] [place] [address] Clari Montez documented as of this encounter Visit Diagnoses Not on filedocumented in this encounter
== END 2024-03-14 10:11 | disposition home or self-care (01) ==
PROVIDERS: PCP Internal Medicine; Visit Provider Urology
DX: N40.0 Benign prostatic hyperplasia without lower urinary tract symptoms (principal); R97.20 Elevated prostate specific antigen [PSA]; Z13.9 Encounter for screening, unspecified
CPT/HCPCS: 99204

== ENCOUNTER → 2024-03-14 09:16 | Outpatient (BNVA) | payer OTHER, SELFPAY | PROVIDERS: PCP Internal Medicine; Visit Provider Urology | DX: N40.0 Benign prostatic hyperplasia without lower urinary tract symptoms (principal); R97.20 Elevated prostate specific antigen [PSA] | CPT/HCPCS: 51798; 81003; 99202 ==

== ENCOUNTER 2024-05-02 09:52 | Outpatient (REF) | payer OTHER, SELFPAY ==
--- NOTE | ~2024-05-02 | US_ITS ---
CLINICAL HISTORY: N40.0 - Benign prostatic hyperplasia without lower urinary tract symptoms US Renal Comparison: None Findings: Right kidney normal size and echotexture, 11.2 cm length. Left kidney normal size and echotexture, 11.2 cm length. No collecting system dilatation of either kidney. Normal color Doppler. Urinary bladder is unremarkable. Prevoid volume 229 mL. Postvoid volume 10 mL. Bilateral ureteral jets are visualized. IMPRESSION: 1. Normal kidneys. This document has been electronically signed by: Joselo Blackman MD on 05/03/2024 11:50:32
[2024-05-02 11:58] LABS: PSA,Total (Free>4and<10) 6.62 ng/mL (0.00-4.00)
[2024-05-03 12:04] LABS: Free Prostate Spec Ag 1.5 ng/mL; Percent Free Prostate Spec Ag 23 % (calc) (>25); Prostate Specific Ag Total 6.4 ng/mL (< OR = 4.0)
== END 2024-05-02 09:53 | disposition home or self-care (01) ==
LOC: HO.US 09:52
PROVIDERS: PCP Internal Medicine; Visit Provider Urology
DX: N40.0 Benign prostatic hyperplasia without lower urinary tract symptoms (principal); R97.20 Elevated prostate specific antigen [PSA]; Z12.5 Encounter for screening for malignant neoplasm of prostate
CPT/HCPCS: 36415; 76770; 84153; 84154

== ENCOUNTER → 2024-05-02 09:53 | Outpatient (BNV) | payer OTHER, SELFPAY | PROVIDERS: PCP Internal Medicine; Visit Provider Radiology Diagnostic Radiology | DX: N40.0 Benign prostatic hyperplasia without lower urinary tract symptoms (principal) | CPT/HCPCS: 76770 ==

== ENCOUNTER 2024-05-16 08:50 | Outpatient (AMB) | payer OTHER, SELFPAY ==
--- NOTE | 2024-05-16 09:08 | A.OFFVIS_ITS ---
Intake Visit Reasons: 10w/US/PSA Intake Note: Patient is Present for 10 week follow up/US/PSA Free PSA:23 Total PSA:6.62 Urology Med: None Antibiotic Allergy: None Blood Thinner: Aspirin PVR:108ml Director Of Collections And Archives Required: No Accompanied by: Self / Same As Patient Allergies cyclobenzaprine Allergy (Mild, Verified 05/16/24 09:13) Unknown naproxen [From Naprosyn] Allergy (Mild, Verified 05/16/24 09:13) Unknown oxycodone [OXYCODONE] Allergy (Mild, Verified 05/16/24 09:13) NAUSEA & VOMITING acetaminophen [Percocet] Allergy (Unknown, Verified 05/16/24 09:13) Nausea and Vomiting lisinipril Allergy (Mild, Uncoded 03/14/24 09:24) Unknown Medication List - Last Reconciled 05/16/24 by Keisha Muhammad MD amlodipine 10 mg PO DAILY aspirin (Adult Aspirin Regimen) 81 mg PO DAILY HPI Comments Details: 05/16/24--69-year-old male presenting with elevated PSA levels. Over the span of approximately four months, his PSA has risen from 4.99 to 6.62. He reports a history of an ulcer that led to significant blood loss and anemia, as well as having had phlebitis in his early adulthood, which was managed with aspirin. The patient also describes unresolved pain following a right hip replacement, which inadequately responded to therapy and analgesics like Tylenol. Consequently, he resumed a regimen of aspirin, which he finds beneficial for pain management. The patient is anxious about the elevated PSA level and potential prostate cancer, displaying concerns about the process and implications of prostate biopsy. Discussed risks to include but not limited to pain, blood in stool, urine and semen, septicemia, need to repeat biopsy. Results - Labs: Elevated PSA at 6.62 - Tests and Diagnostics: Ultrasound of kidneys and bladder showed normal results and good bladder emptying. 03/14/24--Allan is a 69-year-old male who [facility]. He denies obstructive voiding symptoms. AUA BPH score is 2/35. Urinalysis today is negative. He had PSA done 4.99. Denies family history of prostate cancer. Prostate examination smooth no suspicious nodules. I have discussed that elevated PSA may indicate changes in the prostate including benign enlargement, cancer and an inflammatory condition. I have discussed repeat PSA and ultrasound of urinary tract. [facility] Medical History Other testicular hypofunction Solitary pulmonary nodule Pain in right hip Monoclonal gammopathy Gastric ulcer, unspecified as acute or chronic, without hemorrhage or perforation Essential (primary) hypertension Contact with and (suspected) exposure to other hazardous substances Anemia, unspecified Cocaine dependence, uncomplicated Cannabis dependence, in remission Alcohol dependence, in remission Elevated PSA Office Procedures Post Void Residual Post Residual Void Post Void Residual (PVR): 108 53970-Atni Void Residual by ultrasound Results AMB Urinalysis, Automated UA Leukoctes 0 Teja/uL Last Edit by Kyra Gabriel on 05/16/24 14:06 UA Nitrite Negative Last Edit by Kyra Gabriel on 05/16/24 14:06 UA Urobilinogen 3.5 mg/dL Last Edit by Kyra Gabriel on 05/16/24 14:06 UA Protein 0 mg/dL Last Edit by Kyra Gabriel on 05/16/24 14:06 UA pH 6.0 Last Edit by Kyra Gabriel on 05/16/24 14:06 UA Blood 0 Prasanna/uL Last Edit by Kyra Gabriel on 05/16/24 14:06 UA Specific [place] 1.010 Last Edit by Kyra Gabriel on 05/16/24 14:06 UA Ketone Negative Last Edit by Kyra Gabriel on 05/16/24 14:06 UA Bilirubin 0 mg/dL Last Edit by Kyra Gabriel on 05/16/24 14:06 UA Glucose 0 mg/dL Last Edit by Kyra Gabriel on 05/16/24 14:06 Results Reviewed Results Reviewed: Laboratory Last Values Urine pH (Auto) 6.0 05/16/24 13:46 Specific [place] (Auto) 1.010 05/16/24 13:46 Urine Protein (Auto) 0 mg/dL 05/16/24 13:46 Glucose (UA)(Auto) 0 mg/dL 05/16/24 13:46 Urine Ketones (Auto) Negative 05/16/24 13:46 Urine Blood (Auto) 0 Prasanna/uL 05/16/24 13:46 Urine Nitrite (Auto) Negative 05/16/24 13:46 Urine Bilirubin (Auto) 0 mg/dL 05/16/24 13:46 Urine Urobilinogen (Auto) 3.5 mg/dL 05/16/24 13:46 Leukocyte Esterase (Auto) 0 Teja/uL 05/16/24 13:46 Date of Service: 05/02/24 CLINICAL HISTORY: N40.0 - Benign prostatic hyperplasia without lower urinary tract symptoms US Renal Comparison: None Findings: Right kidney normal size and echotexture, 11.2 cm length. Left kidney normal size and echotexture, 11.2 cm length. No collecting system dilatation of either kidney. Normal color Doppler. Urinary bladder is unremarkable. Prevoid volume 229 mL. Postvoid volume 10 mL. Bilateral ureteral jets are visualized. IMPRESSION: 1. Normal kidneys. Assessment & Plan Assessment & Plan Plan Plan - Schedule prostate biopsy, local - Discontinue aspirin therapy two weeks before scheduled biopsy. - Begin antibiotics two days prior to the procedure as directed. - Contact the office for any questions or concerns regarding the upcoming procedure. - Plan for a follow-up appointment after biopsy results are available to discuss further management options. Orders: Orders AMB Urinalysis Automated Today Z13.9 - Encounter for screening, unspecified Coding CPT Codes Post Residual Void - PVR CPT Code: 72784-Bpic Void Residual by ultrasound ([id number])
== END 2024-05-16 10:15 | disposition home or self-care (01) ==
LOC: HO.HUSH 08:51
PROVIDERS: PCP Internal Medicine; Visit Provider Urology
DX: Z13.9 Encounter for screening, unspecified (principal)

== ENCOUNTER → 2024-05-16 08:50 | Outpatient (BNVA) | payer OTHER, SELFPAY | PROVIDERS: PCP Internal Medicine; Visit Provider Urology | DX: N40.0 Benign prostatic hyperplasia without lower urinary tract symptoms (principal); R97.20 Elevated prostate specific antigen [PSA] | CPT/HCPCS: 51798; 81003; 99212 ==

== ENCOUNTER 2024-06-21 07:59 | Outpatient (REF) | payer OTHER, SELFPAY ==
--- OUTSIDE RECORDS SUMMARY | 2024-06-21 08:01 | XMS_ITS | Data Portability ---
Author Organization [facility], [facility] Address [address] [place] [address] Care Team Providers Care Attending Pathologist Name Role Phone SHANE BRADSHAW Referring Provider [...] strength, and increase participation in functional activities. GeoIQastorakis Not available 12/16/2023 09:25:28 12/21/2023 12/21/2023 Assessment: [...] Time Osteoarthri tis of right knee joint [id number] 00 Active 2023 melo burciaga [facility] 4 12:12:10 Osteoarthri tis of right hip joint 1960479538961 07 Active 2023 DENZEL burciaga [facility] 4 14:00:28 Problem Notes None recorded. Procedures Surgical History Date Name Laterality Status Provider Name and Address Organization Details Recorded Time 4 72957 Therapeutic Exercise (1:1) completed Jonah Toledo DPT [address] [place] [address], [address], [facility] 12/30/2023 09:08:12 4 22928: Manual therapy completed Jonah Toledo DPT [address] [facility], [place], [address], [facility] 12/30/2023 09:08:12 4 74846 Therapeutic Exercise (1:1) completed Jonah Toledo DPT [address] [facility], [place], [address], [facility] 12/28/2023 13:23:16 4 92525: Manual therapy completed Jonah Toledo DPT [address] [facility], [place], [address], [facility] 12/28/2023 13:23:16 4 87351 Therapeutic Exercise (1:1) completed CELIO DelunaT [address], [place], [address], [facility] 12/23/2023 13:05:30 4 12365: Manual therapy completed CELIO DelunaT [address], [place], [address], [facility] 12/23/2023 13:05:30 4 08706 Therapeutic Exercise (1:1) completed CELIO DelunaT [address], [place], [address], [facility] 12/21/2023 08:51:50 76946: Manual therapy completed CELIO DelunaT [address], [place], [address], [facility] 12/21/2023 08:51:50 4 15990 Therapeutic Exercise (1:1) completed CELIO DelunaT [address], [place], [address], [facility] 12/16/2023 09:22:30 4 52014: Manual therapy completed Jonah Toledo DPT [address], [place], [address], [facility] 12/16/2023 09:22:38 4 99002 Therapeutic Exercise (1:1) completed CELIO DelunaT [address], [place], [address], [facility] 12/09/2023 16:07:55 43471: Low complexity PT Eval completed Jonah Toledo DPT [address], [place], [address], [facility] 12/09/2023 16:07:57 4 27747 Therapeutic Exercise (1:1) completed CELIO DelunaT [address], [place], [address], [facility] 06/16/2023 14:44:36 4 67958 Therapeutic Exercise (1:1) completed CELIO DelunaT [address], [place], [address], [facility] 06/09/2023 14:33:14 4 44296 Therapeutic Exercise (1:1) completed CELIO DelunaT [address], [place], [address], [facility] 05/28/2023 14:36:52 4 52918 Therapeutic Exercise (1:1) completed Kavya Fernandez PTA [address], [place], [address], [facility] 05/25/2023 20:13:55 4 78666 Therapeutic Exercise (1:1) completed Kavya Fernandez PTA [address], [place], [address], [facility] 05/21/2023 14:09:46 4 10888 Therapeutic Exercise (1:1) completed Jonah Toledo DPT [address], [place], [address], [facility] 05/20/2023 07:04:15 4 64702 Therapeutic Exercise (1:1) completed CELIO DelunaT [address], [place], [address], [facility] 05/13/2023 13:45:18 4 17445 Therapeutic Exercise (1:1) completed CELIO DelunaT [address], [place], [address], [facility] 05/11/2023 15:01:01 4 51669 Therapeutic Exercise (1:1) completed Kavya Fernandez PTA [address], [place], [address], [facility] 05/03/2023 12:18:21 4 11623 Therapeutic Exercise (1:1) completed CELIO DelunaT [address], [place], [address], [facility] 04/30/2023 17:57:24 4 51392 Therapeutic Exercise (1:1) completed Jonah Toledo DPT [address], [place], [address], [facility] 04/28/2023 21:18:48 Imaging Results None recorded. Procedure Notes None recorded. Medical Equipment None Reported. Allergies Allergen ID Allergen Name Allergen Category Reaction Reaction Severity Criticality Documentation Date Start Date Code Code System Note Provider Name and Address Organization Details Recorded Time 909855 lisinopri l medicatio n Not available Not available Not available 04/20/20232022 37048 RxNorm [facility] 16:01:38 Medications Name Sig Start Date [...] SNOMED-CT Code Diagnosis ICD10 Code Diagnosis Note [id number] Jonah Toledo DPT [facility] [address] [place] [address] 04/28/2023 13:06:14 04/29/2023 13:08:56 Aftercare 218532299 Z47.1 History of right hip replacement 3592018180 161809 Z96.740 [id number] Jonah Toledo DPT [facility] [address] [place] [address] 04/30/2023 13:28:48 04/30/2023 15:29:54 Aftercare 198023238 Z47.1 History of right hip replacement 7620778828 132149 Z96.972 [id number] Kavya Fernandez PTA [facility] [address] [place] [address] 05/04/2023 12:31:56 05/04/2023 13:22:07 Aftercare 045009275 Z47.1 History of right hip replacement 9594790415 514174 Z96.060 [id number] Jonah Toledo DPT [facility] [address] [place] [address] 05/11/2023 13:31:19 05/11/2023 15:12:08 Aftercare 522467172 Z47.1 History of right hip replacement 8208881950 053248 Z96.339 [id number] MD Sheridan Esquivel [address] [place] [address] 05/12/2023 13:11:30 05/26/2023 14:27:21 History of total replacement of right hip joint 9388555810 45106 Z96.349 [id number] Jonah Toledo , DPT [facility] [address] [place] [address] 05/13/2023 13:33:30 05/13/2023 14:52:29 Aftercare 868205671 Z47.1 History of right hip replacement 6436649904 968084 Z96.249 [id number] Jonah Toledo , DPT [facility] [address] [place] [address] 05/19/2023 13:43:36 05/19/2023 15:14:51 Aftercare 645255377 Z47.1 History of right hip replacement 5841893621 790819 Z96.197 [id number] Kavya Fernandez, TAX COMPLIANCE AGENT [facility] [address] [place] [address] 05/21/2023 12:59:10 05/21/2023 13:37:35 Aftercare 421797890 Z47.1 History of right hip replacement 5977551471 709058 Z96.626 [id number] Jonah Toledo , DPT [facility] [address] [place] [address] 05/26/2023 13:01:34 05/26/2023 13:35:33 Aftercare 303251636 Z47.1 History of right hip replacement 1995638633 298294 Z96.549 [id number] Jonah Toledo , DPT [facility] [address] [place] [address] 05/28/2023 12:01:36 05/28/2023 16:33:32 Aftercare 871076621 Z47.1 History of right hip replacement 1848894221 036981 Z96.531 [id number] Jonah Toledo DPT [facility] [address] [place] [address] 06/09/2023 12:39:00 06/09/2023 13:19:11 Aftercare 058034470 Z47.1 History of right hip replacement 1101635666 378485 Z96.362 [id number] Jonah Toledo DPT [facility] [address] [place] [address] 06/16/2023 13:04:58 06/16/2023 13:35:53 Aftercare 226466061 Z47.1 History of right hip replacement 6517627475 726041 Z96.032 [id number] MD Taina Esquivelnie [address] [place] [address] 09/29/2023 08:21:08 10/22/2023 09:52:15 History of total replacement of right hip joint 2366814602 26946 Z96.641 Osteoarthr itis of right hip joint 1547197086 71594 M16.11 Trochanter ic bursitis of right hip 0916153387 49422 M70.61 [id number] Jonah Toledo DPT [facility] [address] [place] [address] 12/09/2023 08:05:06 12/09/2023 10:13:07 Trochanteric bursitis of right hip 4718346096 88229 M70.61 [id number] Jonah Toledo DPT [facility] [address] [place] [address] 12/16/2023 08:05:13 12/16/2023 09:22:55 Trochanteric bursitis of right hip 9803618720 35939 M70.61 [id number] Jonah Toledo DPT [facility] [address] [place] [address] 12/21/2023 08:15:10 12/21/2023 10:05:35 Trochanteric bursitis of right hip 8205377725 03552 M70.61 [id number] Jonah Toledo DPT [facility] [address] [place] [address] 12/23/2023 08:01:40 12/23/2023 08:31:36 Trochanteric bursitis of right hip 8954626869 15199 M70.61 [id number] Jonah Toledo DPT [facility] [address] [place] [address] 12/28/2023 07:35:06 12/28/2023 09:00:00 Trochanteric bursitis of right hip 8590707279 03429 M70.61 [id number] Jonah Toledo DPT [facility] [address] [place] [address] 12/30/2023 08:06:51 12/30/2023 08:35:54 Trochanteric bursitis of right hip 2045577410 02494 M70.61 Health Concerns Section Related Observation LastModified by Organization Detai ls LastModified Time None Recorded Concern Status LastModified by Organization Details LastModified Time None Recorded Advance Directives Directive None Recorded Payers Encounter Date Sequence Insurance Name Policy Number Policy Billingsley Covered Member ID Billingsley Member ID Guarantor Name 12/16/2023 [facility] Allan E Cody [id number] Allan E Cody 12/21/2023 [facility] Allan E Cody [id number] Allan E Cody 12/23/2023 [facility] Allan E Cody [id number] Allan E Cody 12/28/2023 [facility] Allan E Cody [id number] Allan E Cody 12/30/2023 [facility] Allan E Cody [id number] Allan E Cody Notes Date Note Type Note Provider Name and Address Organization Details Recorded Time 12/16/2023 text/html Pt reports stretches have helped but continues to be working around the house. Jonah Toledo DPT [address], [place], [address], [facility] 12/16/2023 09:25:42 12/21/2023 text/html Pt reports has had to clean gutters over the weekend. Sore coming in today but overall feeling better Jonah Toledo DPT [address], [place], [address], [facility] 12/21/2023 08:57:22 12/23/2023 text/html Pt reports has had to clean gutters over the weekend. Sore coming in today but overall feeling better Jonah Toledo DPT [address], [place], [address], [facility] 12/23/2023 13:06:11 12/28/2023 text/html Pt reports moving around a lot over the weekend, feeling sore. Jonah Toledo DPT [address], [place], [address], [facility] 12/28/2023 13:24:05 12/30/2023 text/html Pt reports moving around a lot over the weekend, feeling sore. Jonah Toledo DPT [address], [place], [address], [facility] 12/30/2023 09:10:16
[2024-06-21] MEDS: Lidocaine HCl 1 % MPF 5 ML VIAL 10 ML SUBCUT (08:36)
--- NOTE | 2024-06-21 08:48 | P.OP_ITS ---
Operative Note Operative Note Date of Service: 06/21/24 Narrative: Preoperative diagnosis: Elevated PSA Postoperative diagnosis: Elevated PSA Procedure: 1. transrectal ultrasound measurement of prostate 2. transrectal ultrasound-guided pudendal nerve block 3. transrectal ultrasound-guided prostate biopsy 12 core Surgeon: Dr. Ezequiel Zavala Anesthetic: 10cc 1% lidocaine Indications for procedure: Elevated PSA - 6.4 23% Counselling: Technical aspects, risks and benefits of proposed procedure were discussed in full. All questions have been answered, written consent has been obtained and patient agrees to proceed. Procedure: The patient was brought into the procedure area and placed in a left lateral decubitus position. Patient identity confirmed. Perioperative antibiotics confirmed. Safety pause time out performed. JOSIE was performed to dilate rectal sphincter Iodine 10cc with 60 cc gel was placed per rectum to reduce infection risk using a catheter tip syringe. 8 Hz Rosita rectal end-fire ultrasound probe was placed transrectally without difficulty. The prostate was visualized. Seminal vesicles were normal. Prostate margins were clearly demarcated. Bladder was seen superiorly. No cystic structures were noted No calcifications were noted at the surgical margin The prostate was otherwise heterogenous in nature The prostate was measured in 3 dimensions Prostatic Width: 5.0 cm Prostatic Height: 3.5 cm Urethral Length: 4.8 cm Total volume equals : 45 ml An ultrasound-guided pudendal nerve block was performed using a 22 gauge spinal needle in the sagittal plane. 4 cc of 1% lidocaine placed at the junction of each seminal vesicle and 2 cc placed at the apex of the prostate. A 12 core biopsy was performed with 6 cores each side using an 18 gauge prostate biopsy gun. Two cores each were taken at the prostate apex, mid and base on each side. Cores were spaced between lateral and medial aspects. Each core was examined as placed on specimen foam as part of quality assurance technician to ensure a minimum 1 cm of length and minimal discontinuity. He tolerated the procedure well with minimal rectal bleeding. Blood pressure remained stable following procedure. He was able to ambulate to bathroom after 5 minutes. Printed instructions regarding antibiotic use and common adverse events from the procedure such as low-grade temperature, potential infection and bleeding were given. He understands to call the office or go to an emergency room should any of these events arise. Pathology: 12 core prostate biopsy. CPT code 56082: Transrectal ultrasound; this is a diagnostic test for evaluation of the prostate and surrounding structures, looking for abnormalities or suspicious areas worrisome for cancer CPT code 89800: Biopsy, prostate; needle or punch, single or multiple, any approach CPT code 82395: Ultrasonic guidance for needle placement (eg, biopsy, aspiration, injection, localization device), imaging supervision and interpretation
== END 2024-06-21 08:00 | disposition home or self-care (01) ==
LOC: HO.US 07:59
PROVIDERS: PCP Internal Medicine; Visit Provider Urology
DX: R97.20 Elevated prostate specific antigen [PSA] (principal)
CPT/HCPCS: 55700; 76942; 88305; 88344; J2003

== ENCOUNTER → 2024-06-21 07:59 | Outpatient (BNV) | payer OTHER, SELFPAY | PROVIDERS: PCP Internal Medicine; Visit Provider Urology | DX: R97.20 Elevated prostate specific antigen [PSA] (principal) | CPT/HCPCS: 55700; 76872; 76942 ==

== ENCOUNTER 2024-07-07 15:31 | Outpatient (AMB) | payer OTHER, SELFPAY ==
--- NOTE | 2024-07-07 15:31 | MHC.OFFVIS ---
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 I have reviewed results, [place] 3+3 and 3+4. Low volume disease. I have discussed treatment options to include Active Surveillance- reasonable in localized early diagnosed prostate cancer. Plan active surveillance MRI in 6 months and PSA in 4 months. Start proscar 5 mg daily. 05/16/24--69-year-old male presenting with elevated PSA levels. The PSA has risen from 4.99 to 6.62. He reports a history of an ulcer that led to significant blood loss and anemia. The patient also describes unresolved pain following a right hip replacement, which inadequately responded to therapy and analgesics like Tylenol, but has used aspirin, which he finds beneficial for pain management. The patient is anxious about the elevated PSA level and potential prostate cancer, displaying concerns about the process and implications of prostate biopsy. Discussed risks to include but not limited to pain, blood in stool, urine and semen, septicemia, need to repeat biopsy. Results - Labs: Elevated PSA 05/02/24--6.62ng/mL - Tests and Diagnostics: Ultrasound of kidneys and bladder showed normal results and good bladder emptying. 03/14/24--Allan is a 69-year-old male who presents[facility]. He denies obstructive voiding symptoms. AUA BPH score is 2/35. Urinalysis today is negative. He had PSA done 4.99. Denies family history of prostate cancer. Prostate examination smooth no suspicious nodules. I have discussed that elevated PSA may indicate changes in the prostate including benign enlargement, cancer and an inflammatory condition. I have discussed repeat PSA and ultrasound of urinary tract. [facility] Medical History Other testicular hypofunction Solitary pulmonary nodule Pain in right hip Monoclonal gammopathy Gastric ulcer, unspecified as acute or chronic, without hemorrhage or perforation Essential (primary) hypertension Contact with and (suspected) exposure to other hazardous substances Anemia, unspecified Cocaine dependence, uncomplicated Cannabis dependence, in remission Alcohol dependence, in remission Elevated PSA Telehealth Telehealth Telehealth [facility] Location of provider rendering services: practice address Location of patient: address on file Patient Identification confirmed using: Name, : Yes Telehealth method: video Patient verbally consented to treatment: Yes Patient verbally consented to billing insurance company: Yes Patient informed of any privacy concerns related to visit: Yes Results Reviewed Results Reviewed: Collected: 06/21/24 Location: [facility] Received: 06/21/24 Diagnosis A: Left base lateral: Prostatic adenocarcinoma, Carlos score 7 (3+4), grade group 2, 10% pattern 4, 4 mm, 29% of core, and high-grade prostatic intraepithelial neoplasia. B: Left base medial: Benign prostatic tissue. C: Left mid lateral: Benign prostatic tissue. D: Left mid medial: Benign prostatic tissue. E: Left apex lateral: Benign prostatic tissue. F: Left apex medial: Prostatic adenocarcinoma, Carlos score 6 (3+3), grade group 1, 1 mm, 8% of core. G: Right base lateral: Focal atypical glands. H: Right base medial: Benign prostatic tissue. I: Right mid lateral: High-grade prostatic intraepithelial neoplasia. J: Right mid medial: Focal atypical glands, suspicious for adenocarcinoma. K: Right apex lateral: Benign prostatic tissue. L: Right apex medial: Focal atypical glands, suspicious for adenocarcinoma. Data synopsis - Prostate needle biopsy Histologic type: Histologic grade: Prostatic adenocarcinoma, acinar type Carlos score: 7 (3+4) (left base lateral) 6 (3+3) (left apex medial) % of pattern 4: 8% % of pattern 5: 0 Grade group: 2 and 1 Tumor quantitation: Number cores positive: 2 Total number of cores: 14 % of tissue involved: 3% Date of Service: 05/02/24 CLINICAL HISTORY: N40.0 - Benign prostatic hyperplasia without lower urinary tract symptoms US Renal Comparison: None Findings: Right kidney normal size and echotexture, 11.2 cm length. Left kidney normal size and echotexture, 11.2 cm length. No collecting system dilatation of either kidney. Normal color Doppler. Urinary bladder is unremarkable. Prevoid volume 229 mL. Postvoid volume 10 mL. Bilateral ureteral jets are visualized. IMPRESSION: 1. Normal kidneys. Assessment & Plan Assessment & Plan (1) Elevated PSA: Code(s): R97.20 - Elevated prostate specific antigen [PSA] Category: Medical (2) Adenocarcinoma of prostate: Code(s): C61 - Malignant neoplasm of prostate Category: Medical (3) Elevated PSA: Code(s): R97.20 - Elevated prostate specific antigen [PSA] Category: Medical (4) Adenocarcinoma of prostate: Code(s): C61 - Malignant neoplasm of prostate Category: Medical Plan Plan active surveillance MRI in 6 months and PSA in 4 months. Start proscar 5 mg daily. Orders: Orders PSA,Total (Free>4and<10) 4 Months R97.20 - Elevated prostate specific antigen [PSA], C61 - Malignant neoplasm of prostate MR Prostate wo/w con 6 Months C61 - Malignant neoplasm of prostate, R97.20 - Elevated prostate specific antigen [PSA] Medications: New finasteride (Proscar) 5 mg PO DAILY 90 tabs 3RF Coding Level of Care Code Tele Est Pt Level 3 (24643) Complex EM visit Add On G2211 Diagnoses Elevated PSA R97.20 Adenocarcinoma of prostate C61
--- OUTSIDE RECORDS SUMMARY | 2024-07-07 15:33 | XMS_ITS | Clinical Summary ---
Author Organization [employer] Address [address] [facility] [address] [place] [address] Care Team Providers Care Data Integrity Consultant Name Role Phone Unavailable Primary Care Provider [...] Active Additional Information Patient not taking.Reported on 06/08/2024 chlorhexidine (Peridex) 0.12 % solutionIndicati ons:History of tooth extraction, unspecified edentulism class Swish 15 mL morning and night for 1 minute. Spit, do not swallow. Do not eat or drink for 30 minutes following use. 473 mL 4 Active Additional Information Patient not taking.Reported on 06/08/2024 amoxicillin (Amoxil) 500 MG capsule Take 4 tabs (2 grams) 1 hour prior to dental procedure 4 capsule 3 4 Active meloxicam (Mobic) 15 MG tablet TAKE 1 TABLET EVERY DAY BY ORAL ROUTE AFTER MEAL(S). 4 Active omeprazole (PriLOSEC) [address] capsule Take 20 mg by mouth 2 times daily. 4 Active apixaban (Eliquis) 2.5 MG tablet Take 1 tablet by mouth 2 times daily. Active diazePAM (Valium) 2 MG tablet TAKE 1 TABLET BY MOUTH EVERY 8 HORUS NEEDED FOR SPAMS DO NOT DRIVE WHILE TAKING THIS MEDICATION Active HYDROmorphone (Dilaudid) 4 MG tablet TAKE 1/2 (HALF) TO 1 TABLET BY MOUTH EVERY 4 HOURS NEEDED FOR SEVERE PAIN Active traMADol (Ultram) 50 MG tablet TAKE 1 TAB UP TO 3 TIMES A DAY NEEDED FOR SEVERE PAIN DO NOT DRIVE WHILE TAKING THIS MEDICATION Active sulfamethoxazole -trimethoprim (Bactrim DS) 800-160 MG tablet TAKE 1 TABLET BY MOUTH 2 TIMES A DAY FOR PROSTATE BIOPSY. START 2 DAYS PRIOR TO PROSTATE BIOPSY 5 Active sennosides (Senokot) 8.6 MG tablet Take 8.6 mg by mouth. 4 Active amoxicillin (Amoxil) 500 MG capsule Take 4 tabs (2 grams) 1 hour prior to dental procedure 12 capsule 5 Active Active Problems Problem Noted Date Diagnosed Date Class 1 obesity 09/21/2023 Gout 09/21/2023 History of DVT of lower extremity 09/21/2023 Hypertension 09/21/2023 Primary osteoarthritis of right hip 09/21/2023 Dental caries 02/19/2023 Dental abscess 02/19/2023 Resolved Problems Problem Noted Date Diagnosed Date Resolved Date History of hip replacement 04/22/2023 0 06/08/2024 Encounters Date Type Department Care Team Description 06/08/2024 8:00 AM EDT Office Visit [facility] [address] [place], [place] [id number] Clari Montez Partial edentulism, class III (Primary Dx) from Last 3 Months Social History Tobacco Use Types Packs/Day Years [...] Sign Reading Time Taken Comments Blood Pressure 118/74 06/08/2024 8:10 AM EDT Pulse 65 11/26/2023 10:01 AM EDT Temperature - - Respiratory Rate - - Oxygen Saturation - - Inhaled Oxygen Concentration - - Weight - - Height - - Body Mass Index - - Plan of Treatment Upcoming Encounters Date Type Department Care Team (Late st Contact Info) Description 12/07/2024 8:00 AM EDT Office Visit [facility] [address] [place] [address] Georgi Gillis Health Maintenance Due Date Last Done Comments CT Colonography 1954 Colonoscopy 1954 Colorectal Cancer Screening 1954 Depression Screening 1954 FIT DNA/Cologuard 1954 FIT 1954 FOBT 1954 Lipid Panel 1954 SDOH Screening 1954 Sigmoidoscopy 1954 Alcohol/Substance Use Screening 1966 Hepatitis C Screening 1972 Zoster Vaccines (2 of 3) 07/10/2014 05/15/2014 COVID-19 Vaccine ( season) 2024 01/13/2024, 07/15/2023, 11/28/2022, Additional history exists Dental Oral Exam 12/09/2024 06/08/2024, 11/2023, 01/30/2023, Additional history exists Dental Prophylaxis 12/09/2024 06/08/2024, 1 , 02/17/2023, Additional history exists Dental X-Ray: Full Mouth 01/08/2025 01/07/2022, 04/18 Tobacco Screening 06/08/2025 06/08/2024 Dental X-Ray: Bitewings 06/09/2025 06/09/19, 04/22/2023, 01/07/2022, Additional history exists DTaP/Tdap/Td Vaccines (3 - Tdap) 05/12/2026 05/12/2016, 12/21/2012, 10/18/2003 RSV Patients and Patients Aged 60 years or older (1 - 1-dose 75+ series) 2029 Pneumococcal Vaccine: 50+ Years Completed 12/25/2021, 12/15/2019, 10/21/2013 Influenza Vaccine Completed 01/13/2024, , 02/27/2021, Additional history exists HIB Vaccines Aged Out No longer eligi [...] patient's age to complete this topic Meningococcal B Vaccine Aged Out No l onger eligible based on patient's age to complete [...] Procedure Name Priority Date/Time Associated Diagnosis Comments PERIODIC ORAL EVALUATION - ESTABLISHED PATIENT Routine 06/08/2024 8:00 AM EDT Partial edentulism, class III INTRAORAL - PERIAPICAL EACH ADDITIONAL RADIOGRAPHIC IMAGE Routine 06/08/2024 8:00 AM EDT Partial edentulism, class III INTRAORAL - PERIAPICAL FIRST RADIOGRAPHIC IMAGE Routine 06/08/2024 8:00 AM EDT Partial edentulism, class III BITEWINGS - 4 RADIOGRAPHIC IMAGES Routine 06/08/2024 8:00 AM EDT Partial edentulism, class III ORAL HYGIENE INSTRUCTIONS Routine 06/08/2024 8:00 AM EDT Partial edentulism, class III CASE PRESENTATION, DETAILED AND EXTENSIVE TREATMENT PLANNING Routine 06/08/2024 8:00 AM EDT Partial edentulism, class III PROPHYLAXIS - ADULT Routine 06/08/2024 8 :00 AM EDT Partial edentulism, class III INTRAORAL - COMPLETE SERIES OF RADIOGRAPHIC IMAGES Routine 01/07/2022 12:00 AM EST from Last 3 Months or Most Recently Relevant to Health Maintenance Insurance DENTAL - [facility] FULL (MEDICAID)
== END 2024-07-07 16:00 | disposition home or self-care (01) ==
LOC: HO.HUSH 15:31
PROVIDERS: PCP Internal Medicine; Visit Provider Urology
DX: R97.20 Elevated prostate specific antigen [PSA] (principal); C61 Malignant neoplasm of prostate
CPT/HCPCS: 99213; G2211

== ENCOUNTER 2025-01-02 09:48 | Outpatient (REF) | payer OTHER, SELFPAY ==
[2025-01-02 11:34] LABS: PSA,Total (Free>4and<10) 3.15 ng/mL (0.00-4.00)
--- OUTSIDE RECORDS SUMMARY | 2025-01-02 20:26 | XMS_ITS | Data Portability ---
Author Organization [place] [facility], [facility] Address [address] [place] [address] Care Team Providers Care Crossbar Switch Adjuster Name Role Phone SHANE BRADSHAW Referring Provider Assessment Encounter Date Assessment Date Assessment LastModified by Organization Details LastModified Time 12/16/2023 12/16/2023 Assessment: Improved mobility/stiffne ss since beginning stretches at home. STM to proximal ITB/TFL to distal ITB. improvement in symptoms by end of session. Plan: Continued PT is recommended at 2x/week to decrease pain, improve hip strength, and increase participation in functional activities. [email or web address] Not available 12/16/2023 09:25:28 12/21/2023 12/21/2023 Assessment: Swelling not as prominent today. better tolerance to all stretching. Quick to fatigue on R side. Plan: Continued PT is recommended at 2x/week to decrease pain, improve hip strength, and increase participation in functional activities. [email or web address] Not available 12/21/2023 08:57:11 12/23/2023 12/23/2023 Assessment: Swelling not as prominent today. better tolerance to all stretching. Quick to fatigue on R side. Plan: Continued PT is recommended at 2x/week to decrease pain, improve hip strength, and increase participation in functional activities. [email or web address] Not available 12/23/2023 13:05:30 12/28/2023 12/28/2023 Assessment: Increased swelling compared to LV. Tight distal ITB Plan: Continued PT is recommended at 2x/week to decrease pain, improve hip strength, and increase participation in functional activities. [email or web address] Not available 12/28/2023 13:23:56 12/30/2023 12/30/2023 Assessment: Increased swelling compared to LV. Tight distal ITB Plan: D/C to HEP, f/u w/ RORO/ [...] Time Osteoarthri tis of right knee joint [id number] 00 Active 2023 melo silva [facility] 4 12:12:10 Osteoarthri tis of right hip joint [id number] 07 Active 2023 DENZEL FAIRBANKS [facility] 4 14:00:28 Problem Notes None recorded. Procedures Surgical History Date Name Laterality Status Provider Name and Address Organization Details Recorded Time 4 18382 Therapeutic Exercise (1:1) completed CELIO DelunaT [address] [facility], [place], [address], [facility] 12/30/2023 09:08:12 4 45922: Manual therapy completed CELIO DelunaT [address] [facility], [place], [address], [facility] 12/30/2023 09:08:12 4 44954 Therapeutic Exercise (1:1) completed Jonah Toledo, DPT [address], [place], [address], [facility] 12/28/2023 13:23:16 4 50410: Manual therapy completed Jonah Toledo, DPT [address], [place], [address], [facility] 12/28/2023 13:23:16 4 13601 Therapeutic Exercise (1:1) completed Jonah Toledo, DPT [address], [place], [address], [facility] 12/23/2023 13:05:30 4 53209: Manual therapy completed Jonah Toledo, DPT [address], [place], [address], [facility] 12/23/2023 13:05:30 4 30392 Therapeutic Exercise (1:1) completed Jonah Toledo, DPT [address], [place], [address], [facility] 12/21/2023 08:51:50 62307: Manual therapy completed Jonah Toledo, DPT [address], [place], [address], [facility] 12/21/2023 08:51:50 41207 Therapeutic Exercise (1:1) completed Jonah Toledo, DPT [address], [place], [address], [facility] 12/16/2023 09:22:30 43188: Manual therapy completed Jonah Toledo, DPT [address], [place], [address], [facility] 12/16/2023 09:22:38 4 51141 Therapeutic Exercise (1:1) completed Jonah Toledo, DPT [address], [place], [address], [facility] 12/09/2023 16:07:55 92144: Low complexity PT Eval completed Jonah Carpenters, DPT [address], [place], [address], [facility] 12/09/2023 16:07:57 78152 Therapeutic Exercise (1:1) completed Jonah Toledo, CELIOT [address], [place], [address], [facility] 06/16/2023 14:44:36 4 88201 Therapeutic Exercise (1:1) completed Jonah Toledo DPT [address], [place], [address], [facility] 06/09/2023 14:33:14 4 01021 Therapeutic Exercise (1:1) completed Jonah Toledo DPT [address], [place], [address], [facility] 05/28/2023 14:36:52 4 52514 Therapeutic Exercise (1:1) completed Kavya Fernandez, INSPECTOR TESTER SORTER [address], [place], [address], [facility] 05/25/2023 20:13:55 4 94577 Therapeutic Exercise (1:1) completed Kavya Fernandez INSPECTOR TESTER SORTER [address], [place], [address], [facility] 05/21/2023 14:09:46 4 53249 Therapeutic Exercise (1:1) completed CELIO DelunaT [address], [place], [address], [facility] 05/20/2023 07:04:15 4 74752 Therapeutic Exercise (1:1) completed Jonah Toledo DPT [address], [place], [address], [facility] 05/13/2023 13:45:18 4 15467 Therapeutic Exercise (1:1) completed Jonah Toledo, DPT [address], [place], [address], [facility] 05/11/2023 15:01:01 4 56432 Therapeutic Exercise (1:1) completed Kavya Fernandez, INSPECTOR TESTER SORTER [address], [place], [address], [facility] 05/03/2023 12:18:21 4 05052 Therapeutic Exercise (1:1) completed Jonah Toledo DPT [address], [place], [address], [facility] 04/30/2023 17:57:24 4 69058 Therapeutic Exercise (1:1) completed Jonah Toledo DPT [address], [place], [address], [facility] 04/28/2023 21:18:48 Imaging Results None recorded. Procedure Notes None recorded. Medical Equipment None Reported. Allergies Allergen ID Allergen Name Allergen Category Reaction Reaction Severity Criticality Documentation Date Start Date Code Code System Note Provider Name and Address Organization Details Recorded Time 887351 lisinopri l medicatio n Not available Not available Not available 04/20/20232022 48181 RxNorm Not Available [facility] 16:01:38 Medications Name Sig Start Date Stop [...] Diagnosis SNOMED-CT Code Diagnosis ICD10 Code Diagnosis IMO Codes Diagnosis Note [id number] Jonah Toledo DPT [facility] [address] [place] [address] 04/28/2023 13:06:14 04/29/2023 13:08:56 Aftercare [id number] Z47.1 History of right hip replacement 5148741429 832414 Z96.032 [id number] Jonah Toledo DPT [facility] [address] [place] [address] 04/30/2023 13:28:48 04/30/2023 15:29:54 Aftercare 743312105 Z47.1 History of right hip replacement 1416620288 631081 Z96.932 [id number] Kavya Fernandez PTA [facility] [address] [place] [address] 05/04/2023 12:31:56 05/04/2023 13:22:07 Aftercare 407108915 Z47.1 History of right hip replacement 8529952670 025148 Z96.114 [id number] Jonah Toledo DPT [facility] [address] [place] [address] 05/11/2023 13:31:19 05/11/2023 15:12:08 Aftercare 063880392 Z47.1 History of right hip replacement 3256318497 157873 Z96.313 [id number] MD Sheridan Esquivel [address] [place] [address] 05/12/2023 13:11:30 05/26/2023 14:27:21 History of total replacement of right hip joint 6523011088 33750 Z96.153 [id number] Jonah Toledo , DPT [facility] [address] [place] [address] 05/13/2023 13:33:30 05/13/2023 14:52:29 Aftercare 311330732 Z47.1 History of right hip replacement 5914809292 663206 Z96.420 [id number] Jonah Toledo , DPT [facility] [address] [place] [address] 05/19/2023 13:43:36 05/19/2023 15:14:51 Aftercare 818935252 Z47.1 History of right hip replacement 0386157223 242485 Z96.029 [id number] Kavya Fernandez, INSPECTOR TESTER SORTER [facility] [address] [place] [address] 05/21/2023 12:59:10 05/21/2023 13:37:35 Aftercare 829572043 Z47.1 History of right hip replacement 0905031813 014824 Z96.900 [id number] Jonah Toledo DPT [facility] [address] [place] [address] 05/26/2023 13:01:34 05/26/2023 13:35:33 Aftercare 201128142 Z47.1 History of right hip replacement 6755072049 371529 Z96.497 [id number] Jonah Toledo DPT [facility] [address] [place] [address] 05/28/2023 12:01:36 05/28/2023 16:33:32 Aftercare 840916024 Z47.1 History of right hip replacement 0191245138 418509 Z96.834 [id number] Jonah Toledo DPT [facility] [address] [place] [address] 06/09/2023 12:39:00 06/09/2023 13:19:11 Aftercare 138427065 Z47.1 History of right hip replacement 1069028139 153978 Z96.306 [id number] Jonah Toledo DPT [facility] [address] [place] [address] 06/16/2023 13:04:58 06/16/2023 13:35:53 Aftercare 929792641 Z47.1 History of right hip replacement 3658701570 937800 Z96.960 [id number] MD Sheridan Esquivel [address] [place] [address] 09/29/2023 08:21:08 10/22/2023 09:52:15 History of total replacement of right hip joint 1372327727 28993 Z96.641 Osteoarthr itis of right hip joint 6197704862 36743 M16.11 Trochanter ic bursitis of right hip 8809181072 70159 M70.61 [id number] Jonah Toledo DPT [facility] [address] [place] [address] 12/09/2023 08:05:06 12/09/2023 10:13:07 Trochanteric bursitis of right hip 0476510489 69645 M70.61 [id number] Jonah Toledo DPT [facility] [address] [place] [address] 12/16/2023 08:05:13 12/16/2023 09:22:55 Trochanteric bursitis of right hip 6226355127 16938 M70.61 [id number] Jonah Toledo DPT [facility] [address] [place] [address] 12/21/2023 08:15:10 12/21/2023 10:05:35 Trochanteric bursitis of right hip 5877006100 30279 M70.61 [id number] Jonah Toledo DPT [facility] [address] [place] [address] 12/23/2023 08:01:40 12/23/2023 08:31:36 Trochanteric bursitis of right hip 8135886537 41272 M70.61 [id number] Jonah Toledo DPT [facility] [address] [place] [address] 12/28/2023 07:35:06 12/28/2023 09:00:00 Trochanteric bursitis of right hip 4224823967 98993 M70.61 [id number] Jonah Toledo DPT [facility] [address] [place] [address] 12/30/2023 08:06:51 12/30/2023 08:35:54 Trochanteric bursitis of right hip 2565533358 51004 M70.61 Health Concerns Section Related Observation LastModified by Organization Detai ls LastModified Time None Recorded Concern Status LastModified by Organization Details LastModified Time None Recorded Advance Directives Directive None Recorded Payers Insurance Date Sequence Insurance Name Policy Number Policy Billingsley Covered Member ID Billingsley Member ID Guarantor Name 12/25/2023 [employer] - [facility] Allan Ross [id number] Allan Ross Notes Date Note Type Note Provider Name and Address Organization Details Recorded Time 12/16/2023 text/html Pt reports stretches have helped but continues to be working around the house. Jonah Toledo DPT [address], [place], [address], [facility] 12/16/2023 09:25:42 12/21/2023 text/html Pt reports has had to clean gutters over the weekend. Sore coming in today but overall feeling better Jonah Toledo DPT [address], [place], [address], [facility] 12/21/2023 08:57:22 12/23/2023 text/html Pt reports has had to clean gutters over the weekend. Sore coming in today but overall feeling better Jonah Toledo DPT [address], [place], [address], [facility] 12/23/2023 13:06:11 12/28/2023 text/html Pt reports moving around a lot over the weekend, feeling sore. Jonah Toledo DPT [address], [place], [address], [facility] 12/28/2023 13:24:05 12/30/2023 text/html Pt reports moving around a lot over the weekend, feeling sore. Jonah Toledo, DPT [address], [place], [address], [facility] 12/30/2023 09:10:16
== END 2025-01-02 09:49 | disposition home or self-care (01) ==
LOC: HO.LAB 09:48
PROVIDERS: PCP Internal Medicine; Visit Provider Urology
DX: C61 Malignant neoplasm of prostate (principal); Z12.5 Encounter for screening for malignant neoplasm of prostate
CPT/HCPCS: 36415; 84153

== ENCOUNTER 2025-01-16 08:19 | Outpatient (REF) | payer OTHER, SELFPAY ==
--- NOTE | ~2025-01-16 | MR_ITS ---
EXAMINATION: MR PROSTATE WITHOUT THEN WITH IV CONTRAST HISTORY: C61 - Malignant neoplasm of prostate TECHNIQUE: 1.5T body coil survey of the pelvis was performed. Phase array coil imaging of the prostate was performed in multiplanar high resolution axial, coronal, sagittal fast spin echo T2 and axial T1 weighted imaging sequences. Axial diffusion imaging at intermediate and high field performed with ADC mapping. Next, 10 mL Gadavist was given by intravenous infusion, and dynamic axial imaging performed. 3-D reconstructions and post-processing were not performed as no discrete lesion was identified. COMPARISON: There are no prior studies available for comparison. CLINICAL DATA: Most recent PSA: 3.15 ng/mL on 01/02/2025. PSA Density: 0.14 ng/mL squared Prostate Biopsy: Positive biopsy on 06/21/2024 with a Carlos score 3+4 = 7. FINDINGS: Prostate size: 3.9 x 4.6 x 2.5 cm. Calculated prostate volume is 23.3 mL. Hemorrhage: None. Transitional Zone: There is mild heterogeneous nodular hypertrophy of the transitional zone. Peripheral Zone: There is heterogeneously decreased T2 signal intensity within the peripheral zone which can be seen in the setting of prostatitis or scarring. No discrete focus of abnormal signal intensity or restricted diffusion is identified. Seminal Vesicles/Ejaculatory Ducts: Symmetric and normal in signal and caliber. Pelvic Lymph Nodes: No obturator or internal iliac lymph nodes meeting size criteria for adenopathy. Marrow Signal: Normal marrow signal and enhancement without focal lesion identified. MR/MR Prostate wo/w con IMPRESSION: No discrete focus of abnormal signal intensity is identified to suggest clinically significant prostate carcinoma. PI-RADS 2: Low (clinically significant cancer is unlikely to be present) PI-RADS Assessment Categories PI-RADS 1: Very low (clinically significant cancer is highly unlikely to be present) PI-RADS 2: Low (clinically significant cancer is unlikely to be present) PI-RADS 3: Intermediate (the presence of clinically significant cancer is equivocal) PI-RADS 4: High (clinically significant cancer is likely to be present) PI-RADS 5: Very high (clinically significant cancer is highly likely to be present) [employer]. MR Prostate Imaging Reporting and Data System version 2.1. [email or web address] Electronically signed by: Bill Boo MD 01/17/2025 07:33 AM EST RP
--- NOTE | ~2025-01-16 | XR_ITS ---
EXAMINATION: XR ORBITS CLINICAL INFORMATION: PRE MRI COMPARISON: None available. TECHNIQUE: 3 views of the orbits were obtained. FINDINGS: No radiopaque foreign body projected over bilateral orbits is identified. The partially visualized sinuses grossly appear aerated.. XR/XR Orbits For Foreign Body IMPRESSION: No radiopaque foreign body projected over bilateral orbits is identified.. Electronically signed by: Bert Moser MD 01/16/2025 09:15 AM JULIUS
--- OUTSIDE RECORDS SUMMARY | 2025-01-16 08:34 | XMS_ITS | Encounter Summary ---
Author Organization [facility] Address [address] [place] [address] Phone Care Team Providers Care Cracking And Fanning Machine Operator Name Role Phone Unknown, Unknown Primary Care Provider Osmar Vyas MD Primary Care Provider + Reason for Referral * MRI/CAT Scan - Closed Specialty Diagnoses / Procedures Referred By Contac t Referred To Contact Radiology Diagnoses Right knee pain, unspecified chronicity Procedures MRI Knee (Right) CHG MRI LOWER EXTREM JT, W/O CONTRAST CHG MRI, JOINT OF LEG W/CONTRAST CHG MRI, JOINT OF LEG. Osmar Francis MD [address] [place] [address] Phone: tel: fax: Referral ID Status Reason Start Date Expiration Date Visits Re quested Visits Authorized [id number] Closed 08/12/2022 11/01/2022 1 1 Encounter Details Date Type Department Care Team (Latest Contact Info) Description 08/12/2022 Transcribe Orders Virtual Department [address] [place] [address] Osmar Healy MD [address] [place] [address] [phone] Right knee pain, unspecified chronicity (Primary Dx) Social History Tobacco Use Types Packs/Day Years Used Date Smoking Tobacco: Never Assessed Education Answer Date Recorded Are you interested in more education? Not on boo e 07/15/2022 Are you concerned about learning? Not on file 07/15/2022 No 07/15/2022 No 07/15/2022 Digital Access Answer Date Recorded No 07/15/2022 No 07/15/2022 Reliable internet access at home? Not on file 07/15/2022 Device with a working camera? Not on file Sex and Gender Information Value Date Recorded Sex Assigned at Not on file Legal Sex Male 8:36 AM EDT Gender Identity Not on file Sexual Orientation Not on file documented as of this encounter Plan of Treatment Not on file documented as of this encounter Results * MRI KNEE WITHOUT CONTRAST (RIGHT) (09/02/2022 5:45 PM EDT) Anatomical Region Laterality Modality Knee Right Magnetic Resonan ce 09/05/2022 11:5 4 PM EDT Impressions 09/06/2022 12:07 AM EDT Increased signal within the medial meniscus posterior horn, could reflect intrasubstance degeneration or nondisplaced tear. Tricompartmental cartilage loss, full-thickness in the patellofemoral, mild in the medial, and mild in the lateral compartments. Narrative 09/06/2022 12:07 AM EDT MRI KNEE WITHOUT CONTRAST (RIGHT) TECHNIQUE: MRI KNEE WITHOUT CONTRAST (RIGHT) COMPARISON: None FINDINGS: MEDIAL COMPARTMENT: Increased signal in the medial meniscal posterior horn without connection to the articular surface. Mild diffuse cartilage thinning without full-thickness defect or subchondral marrow edema. LATERAL COMPARTMENT: No meniscal tear. Cartilage fissuring over the central portion of the lateral tibial cartilage (6:15). PATELLOFEMORAL COMPARTMENT: Normal patellofemoral alignment. Full-thickness cartilage loss over the medial patellar facet extending into the apex with associated subchondral marrow edema (7:13-11). TENDONS: Quadriceps, patellar and popliteus tendons intact. LIGAMENTS: ACL, PCL, MCL, and LCL complex intact. BONE: No fracture, osteonecrosis, or focal lesion. JOINT: No joint effusion, synovitis, or José's cyst. Procedure Note Moustapha Bejarano MD - 09/06/2022 MRI KNEE WITHOUT CONTRAST (RIGHT) TECHNIQUE: MRI KNEE WITHOUT CONTRAST (RIGHT) COMPARISON: None FINDINGS: MEDIAL COMPARTMENT: Increased signal in the medial meniscal posterior hornwithout connection to the articular surface. Mild diffuse cartilagethinning without full-thickness defect or subchondral marrow edema. LATERAL COMPARTMENT: No meniscal tear. Cartilage fissuring over thecentral portion of the lateral tibial cartilage (6:15). PATELLOFEMORAL COMPARTMENT: Normal patellofemoral alignment.Full-thickness cartilage loss over the medial patellar facet extendinginto the apex with associated subchondral marrow edema (7:13-11). TENDONS: Quadriceps, patellar and popliteus tendons intact. LIGAMENTS: ACL, PCL, MCL, and LCL complex intact. BONE: No fracture, osteonecrosis, or focal lesion. JOINT: No joint effusion, synovitis, or José's cyst. IMPRESSION: Increased signal within the medial meniscus posterior horn, could reflectintrasubstance degeneration or nondisplaced tear. Tricompartmental cartilage loss, full-thickness in the patellofemoral,mild in the medial, and mild in the lateral compartments. Osmar Healy MD IMG MR EXTREMITY Final R esult documented in this encounter Visit Diagnoses Diagnosis Right knee pain, unspecified chronicity- Primary Right knee pain, unspecified chronicity documented in this encounter Care Teams Cracking And Fanning Machine Operator Relationship Specialty Start Date End Date Unknown, Unknown, MD PCP - General 07/15/22 08/20/22 Osmar Healy MD [address] [place] [id number] PCP - General Internal Medicine 08/21/22 documented as of this encounter Additional Source Comments The information contained in this document represents components of the legal health record. It is not the complete legal health record.[facility]
--- OUTSIDE RECORDS SUMMARY | 2025-01-16 08:34 | XMS_ITS | Encounter Summary ---
Author Organization [employer] Address [address] [place] [address] [address] [place] [address] Care Team Providers Care Shag Truck Driver Name Role Phone Unavailable Primary Care Provider Unavailabl e Encounter Details Date Type Department Care Team (Late st Contact Info) Description 04/23/2023 Telephone [facility] ADULT D[facility] [address] [facility] [place] [address] Paulo Arcos DMD [address] [place], [place] [phone] Social History Tobacco Use Types Packs/Day Years [...] Care Team (Late st Contact Info) Description 06/09/2025 8:45 AM EDT Office Visit [facility] ADULT D[facility] [address] [place] [address] Georgi Gillis documented as of this encounter Visit Diagnoses Not on filedocumented in this encounter
--- OUTSIDE RECORDS SUMMARY | 2025-01-16 08:34 | XMS_ITS | Clinical Summary ---
Author Organization [facility] Address [address] [place] [address] Phone Care Team Providers Care Tuber Machine Operator Name Role Phone Osmar Healy MD Primary Care Provider + Social History Tobacco Use Types Packs/Day Years [...] on file Sexual Orientation Not on file Last Filed Vital Signs Vital Sign Reading Time Taken Comments Blood Pressure - - Pulse - - Temperature - - Respiratory Rate - - Oxygen Saturation - - Inhaled Oxygen Concentration - - Weight 95.3 kg (210 lb) 08/27/2022 11:07 AM EDT Height 182.9 cm (6') 08/27/2022 11:07 AM EDT Body Mass Index 28.48 08/27/2022 11:07 AM EDT Plan of Treatment Not on file Medical Devices Not on file Insurance [facility] Care Teams Tuber Machine Operator Relationship Specialty Start Date End Date Osmar Healy MD [address] [place] [id number] PCP - General Internal Medicine 08/21/22 Additional Source Comments The information contained in this document represents components of the legal health record. It is not the complete legal health record.[facility]
--- OUTSIDE RECORDS SUMMARY | 2025-01-16 08:34 | XMS_ITS | Encounter Summary ---
Author Organization [facility] Address [address] [place] [address] Phone Care Team Providers Care Teacher Early Childhood Development Name Role Phone Unknown, Unknown Primary Care Provider Osmar Vyas MD Primary Care Provider + Encounter Details Date Type Department Care Team (Late st Contact Info) Description 07/03/2022 Procedure Pass [facility], [address] [address] Social History Tobacco Use Types Packs/Day Years Used Date Smoking Tobacco: Never Assessed Sex and Gender Information Value Date Recorded Sex Assigned at Not on file Legal Sex Male 8:36 AM EDT Gender Identity Not on file Sexual Orientation Not on file documented as of this encounter Plan of Treatment Not on file documented as of this encounter Visit Diagnoses Not on filedocumented in this encounter Care Teams Teacher Early Childhood Development Relationship Specialty Start Date End Date Unknown, Unknown, MD PCP - General 07/15/22 08/20/22 Osmar Healy MD [address] [place] [id number] PCP - General Internal Medicine 08/21/22 documented as of this encounter Additional Source Comments The information contained in this document represents components of the legal health record. It is not the complete legal health record.[facility]
--- OUTSIDE RECORDS SUMMARY | 2025-01-16 08:34 | XMS_ITS | Encounter Summary ---
Author Organization [facility] Address [address] [place] [address] [address] [place] [address] Care Team Providers Care Pulper Operator Name Role Phone Unavailable Primary Care Provider Unavailabl e Encounter Details Date Type Department Care Team (Late st Contact Info) Description 01/13/2022 Abstract [facility] ADULT DENTAL [address] [place] [address] Dental, Provider, DDS Social History Tobacco Use [...] Description 06/09/2025 8:45 AM EDT Office Visit [facility] ADULT DENTAL [address] [place] [address] Georgi Gillis documented as of this encounter Visit Diagnoses Not on filedocumented in this encounter
--- OUTSIDE RECORDS SUMMARY | 2025-01-16 08:34 | XMS_ITS | Encounter Summary ---
Author Organization [employer] Address [address] [place] [address] [address] [place] [address] Care Team Providers Care Machine Sign Writer Name Role Phone Unavailable Primary Care Provider Unavailabl e Encounter Details Date Type Department Care Team (Late Contact Info) Description 05/15/2023 Telephone [facility] ADULT DENTAL [address] [place] [address] Paulo Arcos, DMD [address] [place] [address] Social History Tobacco Use Types Packs/Day Years [...] Department Care Team (Late Contact Info) Description 06/09/2025 8:45 AM EDT Office Visit [facility] ADULT D[facility] [address] [place] [address] Georgi Gillis documented as of this encounter Visit Diagnoses Not on filedocumented in this encounter
--- OUTSIDE RECORDS SUMMARY | 2025-01-16 08:34 | XMS_ITS | Encounter Summary ---
Author Organization [facility] Address [address] [place] [phone] Phone Care Team Providers Care Corrective Therapy Aide Name Role Phone Unknown, Unknown Primary Care Provider Osmar Vyas MD Primary Care Provider + Encounter Details Date Type Department Care Team (Late st Contact Info) Description 08/12/2022 Procedure Pass [facility], [address] [id number] Social History Tobacco Use Types Packs/Day Years [...] on filedocumented in this encounter Care Teams Corrective Therapy Aide Relationship Specialty Start Date End Date Unknown, Unknown, PCP - General 07/15/22 08/20/22 Osmar Healy MD [address] [place] [id number] PCP - General Internal Medicine 08/21/22 documented as of this encounter Additional Source Comments The information contained in this document represents components of the legal health record. It is not the complete legal health record.[facility]
--- OUTSIDE RECORDS SUMMARY | 2025-01-16 08:34 | XMS_ITS | Patient Health Record ---
Author Organization [facility] Address [address] [place] [id number] Care Team Providers Care Roughener Name Role Phone Husam Izaguirre Jr [phone] Reason For Referral No Information Plan Of Treatment No Information
--- OUTSIDE RECORDS SUMMARY | 2025-01-16 08:34 | XMS_ITS | Clinical Summary ---
Author Organization [employer] Address [address] [facility] [address] [place] [address] Care Team Providers Care Manager Financial Planning Name Role Phone Unavailable Primary Care Provider [...] to dental procedure 12 capsule 5 Active amLODIPine (Norvasc) 5 MG tablet Take 5 mg by mouth Once per day. 3 Active finasteride (Proscar) 5 MG tablet Take 5 mg by mouth Once per day. 5 Active Active Problems Problem Noted Date Diagnosed Date Class 1 obesity 09/21/2023 Gout 09/21/2023 History of DVT of lower extremity 09/21/2023 Hypertension 09/21/2023 Primary osteoarthritis of right hip 09/21/2023 Dental caries 02/19/2023 Dental abscess 02/19/2023 Resolved Problems Problem Noted Date Diagnosed Date Resolved Date History of hip replacement 04/22/2023 0 06/08/2024 Encounters Date Type Department Care Team Description 12/07/2024 8:00 AM EDT Office Visit [facility] [address] [place] [address] Georgi Gillis Dental calculus (Primary Dx) from Last 3 Months Social [...] Sign Reading Time Taken Comments Blood Pressure 124/70 12/07/2024 8:20 AM EDT Pulse 65 12/07/2024 8:20 AM EDT Temperature - - Respiratory Rate - - Oxygen Saturation - - Inhaled Oxygen Concentration - - Weight - - Height - - Body Mass Index - - Plan of Treatment Upcoming Encounters Date Type Department Care Team (Late st Contact Info) Description 06/09/2025 8:45 AM EDT Office Visit [facility] [address] [place] [id number] Georgi Gillis Health Maintenance Due Date Last Done Comments CT Colonography 1954 Colonoscopy 1954 Colorectal Cancer Screening 1954 Depression Screening 1954 FIT DNA/Cologuard 1954 FIT 1954 FOBT 1954 Lipid Panel 1954 SDOH Screening 1954 Sigmoidoscopy 1954 Alcohol/Substance Use Screening 1966 Hepatitis C Screening 1972 COVID-19 Vaccine ( season) 2024 07/12/2024, 01/13/2024, 07/15/2023, Additional history exists Influenza Vaccine (#1) 2024 , 11/28/2022, 12/25/2021, Additional history exists Dental Oral Exam 12/09/2024 06/08/2024, 11/2023, 01/30/2023, Additional history exists Dental X-Ray: Full Mouth 01/08/2025 01/07/2022, 04/18 Dental Prophylaxis 06/08/2025 12/07/2024, 0 06/08/2024, 11/26/2023, Additional history exists Dental X-Ray: Bitewings 06/09/2025 06/09/19 25, 04/22/2023, 01/07/2022, Additional history exists Tobacco Screening 12/07/2025 12/07/2024 DTaP/Tdap/Td Vaccines (4 - Tdap) 05/17/2026 05/17/2016, 05/12/2016, 12/21/2012, Additional history exists Zoster Vaccines Completed 03/15/2020, 11/17, 05/15/2014 Pneumococcal Vaccine: 50+ Years Completed 12/25/2021, 12/15/2019, 10/21/2013 RSV Patients and Patients Aged 60 years or older Completed 01/21/2023 HIB Vaccines Aged Out No longer eligi [...] Procedure Name Priority Date/Time Associated Diagnosis Comments ORAL HYGIENE INSTRUCTIONS Routine 12/07/2024 8:00 AM EDT CASE PRESENTATION, DETAILED AND EXTENSIVE TREATMENT PLANNING Routine 12/07/2024 8:00 AM EDT PROPHYLAXIS - ADULT Routine 12/07/2024 8 :00 AM EDT BITEWINGS - 4 RADIOGRAPHIC IMAGES Routine 06/08/2024 8:00 AM EDT Partial edentulism, class III PERIODIC ORAL EVALUATION - ESTABLISHED PATIENT Routine 06/08/2024 8:00 AM EDT Partial edentulism, class III INTRAORAL - COMPLETE SERIES OF RADIOGRAPHIC IMAGES Routine 01/07/2022 12:00 AM EST from Last 3 Months or Most Recently Relevant to Health Maintenance Insurance DENTAL - HSN FULL (MEDICAID)
--- OUTSIDE RECORDS SUMMARY | 2025-01-16 08:35 | XMS_ITS | Encounter Summary ---
Author Organization [facility] Address [address] [place] [phone] Phone Care Team Providers Care Sort Operations Supervisor Name Role Phone Unknown, Unknown Primary Care Provider Osmar Vyas MD Primary Care Provider + Reason for Referral * MRI/CAT Scan - Closed Specialty Diagnoses / Procedures Referred By Contac t Referred To Contact Radiology Diagnoses Right hip pain Procedures MRI Hip (Right) CHG MRI LOWER EXTREM JT, W/O CONTRAST CHG MRI, JOINT OF LEG W/CONTRAST CHG MRI, JOINT OF LEG. Osmar Francis MD [address] [place] [address] Phone: tel: fax: Referral ID Status Reason Start Date Expiration Date Visits Re quested Visits Authorized [id number] Closed 07/03/2022 10/06/2022 1 1 Encounter Details Date Type Department Care Team (Latest Contact Info) Description 07/03/2022 Transcribe Orders Virtual Department [address] [place] [address] Osmar Healy MD [address] [place] [phone] Right hip pain (Primary Dx) Social History Tobacco Use Types Packs/Day Years Used Date Smoking Tobacco: Never Assessed Sex and Gender Information Value Date Recorded Sex Assigned at Not on file Legal Sex Male 8:36 AM EDT Gender Identity Not on file Sexual Orientation Not on file documented as of this encounter Plan of Treatment Not on file documented as of this encounter Results * MRI HIP WITHOUT CONTRAST (RIGHT) (08/10/2022 5:09 PM EDT) Anatomical Region Laterality Modality Hip Right Magnetic Resonan ce 08/12/2022 4:58 PM EDT Impressions 08/12/2022 5:00 PM EDT Severe degenerative changes of the right hip with minimally depressed subchondral insufficiency fracture in the superior aspect of the femoral head. This report has been forwarded to an automated communication system which will electronically notify appropriate providers of potentially important findings. Narrative 08/12/2022 5:00 PM EDT MRI HIP WITHOUT CONTRAST (RIGHT) TECHNIQUE: Multi-sequence, multi-planar MRI of the hip without intravenous contrast. COMPARISON: None FINDINGS: ENTIRE PELVIS SCREENING: No fracture, sacroiliitis, or focal bone lesion. No intrapelvic soft tissue abnormality. DEDICATED HIP: Bone: Minimally depressed subchondral insufficiency fracture in the superolateral aspect of the femoral head with bone marrow edema. No osteonecrosis. Joint: Diffuse full-thickness cartilage loss. Joint effusion with synovitis. Diffuse labral degeneration. Tendons: Gluteus minimus enthesopathy without high-grade tear. The remaining tendons about the hip are intact. Minimally distended iliopsoas bursa, probably communicating with the joint. Procedure Note Luis Eduardo Freeman MD - 08/12/2022 MRI HIP WITHOUT CONTRAST (RIGHT) TECHNIQUE: Multi-sequence, multi-planar MRI of the hip without intravenouscontrast. COMPARISON: None FINDINGS: ENTIRE PELVIS SCREENING: No fracture, sacroiliitis, or focal bone lesion.No intrapelvic soft tissue abnormality. DEDICATED HIP: Bone: Minimally depressed subchondral insufficiency fracture in thesuperolateral aspect of the femoral head with bone marrow edema. Noosteonecrosis. Joint: Diffuse full-thickness cartilage loss. Joint effusion withsynovitis. Diffuse labral degeneration. Tendons: Gluteus minimus enthesopathy without high-grade tear. Theremaining tendons about the hip are intact. Minimally distended iliopsoasbursa, probably communicating with the joint. IMPRESSION: Severe degenerative changes of the right hip with minimally depressedsubchondral insufficiency fracture in the superior aspect of the femoralhead. This report has been forwarded to an automated communication system whichwill electronically notify appropriate providers of potentially importantfindings. Osmar Healy MD IMG MR EXTREMITY Final R esult documented in this encounter Visit Diagnoses Diagnosis Right hip pain- Primary Pain in joint, pelvic region and thigh Right hip pain Pain in joint, pelvic region and thigh documented in this encounter Care Teams Sort Operations Supervisor Relationship Specialty Start Date End Date Unknown, Unknown, PCP - General 07/15/22 08/20/22 Osmar Healy MD [address] [place] [id number] PCP - General Internal Medicine 08/21/22 documented as of this encounter Additional Source Comments The information contained in this document represents components of the legal health record. It is not the complete legal health record.[facility]
== END 2025-01-16 08:20 | disposition home or self-care (01) ==
LOC: HO.MRI 08:19
PROVIDERS: Absent Provider Radiology Diagnostic Radiology; PCP Internal Medicine; Visit Provider Urology
DX: Z01.818 Encounter for other preprocedural examination (principal); C61 Malignant neoplasm of prostate; R97.20 Elevated prostate specific antigen [PSA]
CPT/HCPCS: 70030; 72197; 76377; A9585

== ENCOUNTER → 2025-01-16 08:31 | Outpatient (BNV) | payer OTHER, SELFPAY | PROVIDERS: Absent Provider Radiology Diagnostic Radiology; PCP Internal Medicine; Visit Provider Radiology Diagnostic Ultrasound | DX: C61 Malignant neoplasm of prostate (principal) | CPT/HCPCS: 70030; 72197 ==